=== PATIENT | female | born 1960 | race American Indian/Alaskan Native ===

== ENCOUNTER 2019-03-27 15:09 | Inpatient (IN) | payer OTHER ==
--- NOTE | 2019-03-27 16:13 | Emergency Department Report ---
HPI - General Chief Complaint: Dyspnea/Respdistress Time Seen by Provider: 03/27/19 15:37 - HPI HPI: 58-year-old -Ira[place] female, with a past medical history of CHF, hypertension, osteoarthritis, gout, morbid obesity, presents to the emergency department by EMS from home with complaint of shortness of breath and volume/fluid overload. Patient has been having swelling in the legs and abdomen that she says has been going on for the past 2 weeks. More recently she has had a few days of shortness of breath, coughing. Earlier today the patient says that she had a "vasovagal" episode in which she passed out while coughing. She says that this has occurred multiple times over the past year and "they are working it up." The patient has been taking some extra Lasix for the swelling without much relief. She is a [facility] patient. No recent travel or sick contacts at home. ED Past Medical Hx - Past Medical History Hx Hypertension: Yes Hx Congestive Heart Failure: Yes Hx Diabetes: No Hx Headaches / Migraines: No Hx Asthma: No Hx COPD: (pt denies) Additional medical history: Gout, Enlarged heart, osteoarthritis, H. Pylori, Pulmonary edema - Surgical History Past Surgical History?: No - Social History Smoking Status: Never Smoker - Medications Home Medications: Home Medications Medication Instructions Recorded Confirmed Last Taken Type Aspirin [Aspirin BABY CHEW TAB] 81 mg PO QDAY 05/25/13 03/28/19 Unknown History Furosemide [Lasix TAB] 40 mg PO BID #60 tablet 03/08/18 03/28/19 Unknown Rx allopurinoL [Zyloprim] 300 mg PO QDAY #30 tablet 03/08/18 03/28/19 Unknown Rx ALBUTEROL NEB's [Proventil 0.083% 2.5 mg IH Q4H PRN 07/01/18 07/01/18 Unknown History NEBS] Albuterol Sulfate [Ventolin HFA] 2 puff IH Q4H PRN 07/01/18 07/01/18 Unknown History Losartan [Cozaar] 12.5 mg PO QDAY 07/01/18 03/28/19 Unknown History Pantoprazole [Protonix TAB] 40 mg PO BID 07/01/18 07/01/18 Unknown History Potassium Chloride [K-Tab ER] 20 meq PO QDAY 07/01/18 03/28/19 Unknown History ED Review of Systems ROS: Stated complaint: SOB Other details as noted in HPI Comment: All other systems reviewed and negative Constitutional: denies: chills, fever Eyes: denies: eye pain, vision change ENT: denies: ear pain, throat pain Respiratory: cough, shortness of breath Cardiovascular: edema, syncope Gastrointestinal: denies: abdominal pain, vomiting Genitourinary: denies: dysuria, discharge Musculoskeletal: denies: back pain, arthralgia Skin: denies: rash, lesions Neurological: denies: headache, weakness Physical Exam - Physical Exam Vital Signs: Vital Signs 03/27/19 03/27/19 15:31 15:35 Temperature 97.5 F L Pulse Rate 85 86 Respiratory 19 23 Rate Blood Pressure 137/65 Blood Pressure 137/65 [Left] O2 Sat by Pulse 100 97 Oximetry Physical Exam: GENERAL: The patient is well-developed well-nourished. HEENT: Normocephalic. Atraumatic. Patient has moist mucous membranes. EYES: Extraocular motions are intact. NECK: Supple. Trachea is midline. CHEST/LUNGS: Coarse breath sounds. Mild tachypnea but no accessory muscle use. There is no respiratory distress noted. HEART/CARDIOVASCULAR: Regular. There is no tachycardia. There is no murmur. ABDOMEN: Abdomen is soft, nontender. Patient has normal bowel sounds. Morbidly obese habitus. SKIN:Skin is warm and dry. Bilateral lower extremity edema. NEURO: The patient is awake, alert, and oriented. The patient is cooperative. The patient has no focal neurologic deficits. Normal speech. MUSCULOSKELETAL: There is no tenderness or deformity. There is no evidence of acute injury. ED Course Vital Signs 03/27/19 03/27/19 15:31 15:35 Temperature 97.5 F L Pulse Rate 85 86 Respiratory 19 23 Rate Blood Pressure 137/65 Blood Pressure 137/65 [Left] O2 Sat by Pulse 100 97 Oximetry - Reevaluation(s) Reevaluation #1: 03/27/19 23:58 I have spoken to Dr. Crawley at [facility] regarding the patient's need for admission and her request for transfer to every or a [facility] facility. At first, they were going to send [place] [facility] [place] to [place] department for evaluation and then most likely admission. However, just at this time, the patient began having some hypoxia despite being on her 8 L via nasal cannula of oxygen. Patient was not stable for transfer at this point but Dr. Crawley has given us permission to admit the patient to this hospital and they will reevaluate the patient tomorrow for possible transfer. The patient was given DuoNeb treatments and placed on high flow oxygen with good improvement of her shortness of breath and improvement of the oxygen saturation. ED Medical Decision Making - Lab Data Result diagrams: 03/28/19 03:18 03/28/19 03:18 - Radiology Data Radiology results: report reviewed, image reviewed interpreted by me: Chest x-ray shows some pulmonary vascular congestion and mild Interstitial edema. No pneumothorax. No obvious pneumonia. CT ANGIOGRAPHY OF THE CHEST WITH INTRAVENOUS CONTRAST AND MULTIPLANAR MIP RECONSTRUCTIONS INDICATION / CLINICAL INFORMATION: Shortness of breath, syncope and elevated d-dimer. TECHNIQUE: Axial CT images were obtained after injection of 100 cc Omnipaque 350 IV contrast using CTA protocol. 3 plane MIP / 3D reconstructions were produced. All CT scans at this location are perfo rmed using CT dose reduction for ALARA by means of automated exposure control. COMPARISON: None currently available. FINDINGS: There is moderate generalized cardiomegaly. There is also generalized enlargement of the pulmonary arteries bilaterally. There is good opacification of the pulmonary arterial system bilaterally without intraluminal filling defect to suggest acute PTE. There are mild atherosclerotic calcifications involving the thoracic aorta without aneurysm or dissection. No coronary artery calcification is seen. The tracheobronchial tree is normal. There is mild bibasilar dependent atelectasis. The lungs are otherwise clear. There is no evidence of adenopathy or effusion. There is reflux of contrast into a dilated inferior vena cava and into the hepatic veins. The visualized upper abdomen is otherwise normal. There is mild lower thoracic spondylosis. IMPRESSION: 1. No evidence of acute PTE. 2. Moderate generalized cardiomegaly. Reflux of contrast into the IVC and hepatic veins is characteristic of right heart failure. 3. Enlargement of the central pulmonary arteries is consistent with pulmonary arterial hypertension. - Medical Decision Making This patient came in with the complaints of swelling to the lower extremity and up to the abdomen, as well as some shortness of breath. She has a history of CHF, morbid obesity with sleep apnea, COPD. The patient does appear to have th is edema but does not appear in any respiratory distress. However at times the patient's pulse ox is seen going down into the mid to low 80s. Her labs were mostly unremarkable except for an elevated BNP and elevated d-dimer level. Chest x-ray is consistent with CHF. The patient has only been taking 1.5 times the normal prescribed diuretic dose for her. At one point, when the patient did appear more stable, and based on the patient's request, I attempted to get her transferred to a [facility] facility. However she had another episode of the hypoxia and was unstable for transfer. She did better with the high flow oxygen. Eventually she did have the CT angiography of the chest that did not show any PE and once again appears consistent with a CHF exacerbation. She was given an extra dose of Lasix and will be admitted to the IMCU. Patient accepted by the hospitalist, Dr. Rendon. - Differential Diagnosis CHF, PE, Pneumonia, COPD Critical Care Time: No Critical care attestation.: If time is entered above; I have spent that time in minutes in the direct care of this critically ill patient, excluding procedure time. ED Disposition Clinical Impression: Obesity hypoventilation syndrome, COPD exacerbation, Hypoxia CHF exacerbation Qualifiers: Heart failure type: unspecified Qualified Code(s): I50.9 - Heart failure, unspecified Disposition: DC-09 OP ADMIT IP TO THIS HOSP Is pt being admited?: Yes Condition: Serious Time of Disposition: 22:05
--- NOTE | 2019-03-27 16:13 | XRay Report ---
CHEST 1 VIEW INDICATION / CLINICAL INFORMATION: SOB. COMPARISON: Or 17 2018 FINDINGS: SUPPORT DEVICES: None. HEART / MEDIASTINUM: Cardiac silhouette is moderately enlarged but unchanged from prior exam. There i s pulmonary venous hypertension. LUNGS / PLEURA: No significant pulmonary or pleural abnormality. No pneumothorax. ADDITIONAL FINDINGS: No significant additional findings. IMPRESSION: 1. Persistent cardiomegaly with mild pulmonary venous hypertension. No interval change from prior exa m. Signer Name: Meg Nolen MD Signed: 03/27/2019 4:09 PM Workstation Name: [id number]
[2019-03-27 16:23] LABS: Hematocrit 40.4 % (30.3-42.9); Hemoglobin 12.8 gm/dl (10.1-14.3); Mean Corpuscular HGB Conc 32 % (30-34); Mean Corpuscular Volume 81 fl (79-97); Platelet Count 212 K/mm3 (140-440); Red Blood Count 5.01 M/mm3 (3.65-5.03); Red Cell Distribution Width 19.6 % (13.2-15.2)
[2019-03-27 16:49] LABS: Alanine Aminotransferase 33 units/L (7-56); Albumin 3.6 g/dL (3.9-5); BUN/Creatinine Ratio 19; Blood Urea Nitrogen 15 mg/dL (7-17); Calcium 9.8 mg/dL (8.4-10.2); Hemolysis Index 11
[2019-03-27 19:14] LABS: Basophils % (Manual) 0 % (0.0-1.8); Target Cells 1+; Total Cells Counted 100
[2019-03-27 19:15] LABS: Hypochromasia 1+; Large Platelets 1+; Ovalocytes Few; Platelet Estimate Consistent w Auto
[2019-03-27] MEDS ORDERED: FUROSEMIDE 40 MG/4 ML INJ IV ONE (19:46)
[2019-03-27] MEDS ORDERED: IPRATROPIUM 0.02% NEBU 2.5 ML IH ONE (21:17)
[2019-03-27] MEDS ORDERED: ALBUTEROL 2.5 MG/3 ML NEBU IH ONE (21:17)
[2019-03-27] MEDS ORDERED: ENOXAPARIN 100 MG/1 ML INJ SUB-Q ONE (22:04)
[2019-03-27] MEDS ORDERED: ACETAMINOPHEN 325 MG TAB PO PRN (23:25)
[2019-03-27] MEDS ORDERED: MORPHINE 2 MG/1 ML INJ IV PRN (23:25)
[2019-03-27] MEDS ORDERED: ONDANSETRON 4 MG/2 ML INJ IV PRN (23:25)
[2019-03-27] MEDS ORDERED: MAGNESIUM HYDROXIDE (MOM) ORAL LIQD UDC PO PRN (23:25)
[2019-03-27] MEDS ORDERED: NITROGLYCERIN 0.4 MG TAB SUBL SL PRN (23:25)
--- NOTE | 2019-03-28 00:32 | Cat Scan Report ---
CT ANGIOGRAPHY OF THE CHEST WITH INTRAVENOUS CONTRAST AND MULTIPLANAR MIP RECONSTRUCTIONS INDICATION / CLINICAL INFORMATION: Shortness of breath, syncope and elevated d-dimer. TECHNIQUE: Axial CT images were obtained after injection of 100 cc Omnipaque 350 IV contrast using CTA protocol. 3 plane MIP / 3D reconstructions were produced. All CT scans at this location are performed using CT dose reduction for ALARA by means of automated exposure control. COMPARISON: None currently available. FINDINGS: There is moderate generalized cardiomegaly. There is also generalized enlargement of the pulmonary ar teries bilaterally. There is good opacification of the pulmonary arterial system bilaterally without intraluminal filling defect to suggest acute PTE. There are mild atherosclerotic calcifications invol ving the thoracic aorta without aneurysm or dissection. No coronary artery calcification is seen. The tracheobronchial tree is normal. There is mild bibasilar dependent atelectasis. The lungs are oth erwise clear. There is no evidence of adenopathy or effusion. There is reflux of contrast into a dilated inferior vena cava and into the hepatic veins. The visuali zed upper abdomen is otherwise normal. There is mild lower thoracic spondylosis. IMPRESSION: 1. No evidence of acute PTE. 2. Moderate generalized cardiomegaly. Reflux of contrast into the IVC and hepatic veins is characteri stic of right heart failure. 3. Enlargement of the central pulmonary arteries is consistent with pulmonary arterial hypertension. Signer Name: Aníbal Cheney MD Signed: 03/28/2019 12:27 AM Workstation Name: [id number]
[2019-03-28] MEDS ORDERED: IPRATROPIUM/ALBUTEROL SULFATE 3 ML AMPUL.NEB IH ONE ×2 (02:06→21:34)
[2019-03-28] MEDS: IPRATROPIUM/ALBUTEROL SULFATE 3 ML AMPUL.NEB IH SCH ×3 (02:22→21:33)
[2019-03-28 04:09] LABS: Basophils # (Auto) 0.1 K/mm3 (0.0-0.1); Basophils % (Auto) 1.2 % (0.0-1.8); Eosinophils # (Auto) 0.1 K/mm3 (0.0-0.4); Eosinophils % (Auto) 1.2 % (0.0-4.3); Hematocrit 42.1 % (30.3-42.9); Hemoglobin 13.4 gm/dl (10.1-14.3); Lymphocytes # (Auto) 2.5 K/mm3 (1.2-5.4); Lymphocytes % (Auto) 39.1 % (13.4-35.0); Mean Corpuscular HGB Conc 32 % (30-34); Mean Corpuscular Volume 82 fl (79-97); Monocytes # (Auto) 0.6 K/mm3 (0.0-0.8); Monocytes % (Auto) 10.1 % (0.0-7.3); Platelet Count 215 K/mm3 (140-440); Red Blood Count 5.16 M/mm3 (3.65-5.03); Red Cell Distribution Width 19.3 % (13.2-15.2)
[2019-03-28 04:15] LABS: BUN/Creatinine Ratio 19; Blood Urea Nitrogen 15 mg/dL (7-17); Calcium 10.1 mg/dL (8.4-10.2); Hemolysis Index 8
[2019-03-28 04:21] LABS: INR 1.19 (0.87-1.13)
[2019-03-28 04:22] LABS: Partial Thromboplastin Time 39.8 Sec. (24.2-36.6)
[2019-03-28] MEDS ORDERED: FUROSEMIDE 20 MG/2 ML INJ ONE ×2 (06:13→18:07)
[2019-03-28] MEDS ORDERED: methylPREDNISolone Sod Succinate 40 MG/1 ML INJ ONE ×3 (06:13→22:17)
[2019-03-28] MEDS: FUROSEMIDE 40 MG/4 ML INJ IV SCH ×2 (06:20→18:08)
[2019-03-28] MEDS: methylPREDNISolone Sod Succinate 40 MG/1 ML INJ IV SCH ×3 (06:20→22:37)
--- NOTE | 2019-03-28 06:35 | History and Physical Report ---
History of Present Illness Date of examination: 03/27/19 Date of admission: 03/27/19 22:05 Chief complaint: Shortness of breath Progressive lower extremity swelling History of present illness: Patient is a 58-year-old -Maltese female with known history of CHF, COPD, morbid obesity, hypertension and gout who presents to the emergency room today complaining of shortness of breath and progressive swelling of her lower extremity which has been ongoing for about 2 weeks. Patient is a [facility] patient and has been cleared to receive care in this facility. Patient indicates that she has been taking extra doses of diuretics without any significant improvement in extremity swelling. She also indicates that she has had episodes of vasovagal attacks which is currently being evaluated. She had an episode earlier today. She denies any chest pain, no nausea vomiting, no abdominal pain, however she has had some pain in her left lower extremity. Attempts were made in getting an ultrasound of the lower extremities today but due to technical reasons just coul d not be done. CT angiogram did not show any pulmonary embolism. Past History Past Medical History: arthritis, COPD, heart failure, hypertension, other (Morbid obesity) Social history: no significant social history Family history: no significant family history Medications and Allergies Allergies Allergy/AdvReac Type Severity Reaction Status Date / Time ibuprofen AdvReac Nausea Verified 05/25/13 17:03 lisinopril AdvReac Unknown Verified 03/02/18 05:51 Home Medications Medication Instructions Recorded Confirmed Last Taken Type Aspirin [Aspirin BABY CHEW TAB] 81 mg PO QDAY 05/25/13 07/01/18 Unknown History Furosemide [Lasix TAB] 40 mg PO BID #60 tablet 03/08/18 07/01/18 Unknown Rx allopurinoL [Zyloprim] 300 mg PO QDAY #30 tablet 03/08/18 07/01/18 Unknown Rx ALBUTEROL NEB's [Proventil 0.083% 2.5 mg IH Q4H PRN 07/01/18 07/01/18 Unknown History NEBS] Albuterol Sulfate [Ventolin HFA] 2 puff IH Q4H PRN 07/01/18 07/01/18 Unknown History Ciclesonide [Alvesco 160MCG/PUFF] 1 puff IH QDAY 07/01/18 07/01/18 Unknown History Losartan [Cozaar] 12.5 mg PO QDAY 07/01/18 07/01/18 Unknown History Pantoprazole [Protonix TAB] 40 mg PO BID 07/01/18 07/01/18 Unknown History Potassium Chloride [K-Tab ER] 20 meq PO QDAY 07/01/18 07/01/18 Unknown History carvediloL [Coreg] 3.125 mg PO BID 30 Days #60 tablet 07/06/18 Unknown Rx Active Meds: Active Medications Acetaminophen (Tylenol) 650 mg PO Q4H PRN PRN Reason: Pain MILD(1-3)/Fever >100.5/SHETTY Albuterol/Ipratropium (Duoneb *Not For Prn Use*) 1 ampul IH Q6HRT [facility] Last Admin: 03/28/19 02:22 Dose: 1 ampul Documented by: Furosemide (Lasix) 40 mg IV BID@0600,1800 [facility] Last Admin: 03/28/19 06:20 Dose: 40 mg Documented by: Magnesium Hydroxide (Milk Of Magnesia) 30 ml PO Q4H PRN PRN Reason: Constipation Methylprednisolone Sodium Succinate (Solu-Medrol) 40 mg IV Q8HR [facility] Last Admin: 03/28/19 06:20 Dose: 40 mg Documented by: Morphine Sulfate (Morphine) 2 mg IV Q4H PRN PRN Reason: Pain, Moderate (4-6) Nitroglycerin (Nitrostat) 0.4 mg SL .Q5MIN PRN PRN Reason: Chest Pain Ondansetron HCl (Zofran) 4 mg IV Q8H PRN PRN Reason: Nausea And Vomiting Sodium Chloride (Sodium Chloride Flush Syringe 10 Ml) 10 ml IV BID [facility] Sodium Chloride (Sodium Chloride Flush Syringe 10 Ml) 10 ml IV PRN PRN PRN Reason: LINE FLUSH Review of Systems Constitutional: no fever, no chills Cardiovascular: no chest pain, no palpitations Respiratory: shortness of breath, no cough Gastrointestinal: no nausea, no vomiting, no diarrhea Integumentary: no rash, no pruritis Neurological: no headaches Psychiatric: no anxiety, no confusion Endocrine: no excessive thirst, no nocturia Exam - Constitutional Vitals: Temp Pulse Resp BP Pulse Ox 97.5 F L 86 22 101/71 94 03/27/19 15:35 03/28/19 06:00 03/28/19 06:00 03/28/19 06:00 03/28/19 06:00 General appearance: Present: no acute distress, well-nourished, obese - EENT Eyes: Present: PERRL, EOM intact ENT: hearing intact, clear oral mucosa, dentition normal - Neck Neck: Present: supple, normal ROM - Respiratory Respiratory effort: normal Respiratory: bilateral: diminished - Cardiovascular Rhythm: regular Heart Sounds: Present: S1 & S2 - Extremities Extremities: no ischemia Results - Labs CBC & Chem 7: 03/28/19 03:18 03/28/19 03:18 Labs: Abnormal lab results 03/27/19 03/27/19 03/27/19 Range/Units 15:54 15:54 15:54 RBC (3.65-5.03) M/mm3 MCH 26 L (28-32) pg RDW 19.6 H (13.2-15.2) % Lymph % (Auto) (13.4-35.0) % Glynn % (Auto) (0.0-7.3) % Monocytes % (Manual) 10.0 H (0.0-7.3) % PT (12.2-14.9) Sec. INR (0.87-1.13) APTT (24.2-36.6) Sec. D-Dimer 1130.51 H (0-234) ng/mlDDU Glucose (65-100) mg/dL Total Bilirubin 1.50 H (0.1-1.2) mg/dL NT-Pro-B Natriuret Pep (0-900) pg/mL Albumin 3.6 L (3.9-5) g/dL 03/27/19 03/28/19 03/28/19 Range/Units 17:15 03:18 03:18 RBC 5.16 H (3.65-5.03) M/mm3 MCH 26 L (28-32) pg RDW 19.3 H (13.2-15.2) % Lymph % (Auto) 39.1 H (13.4-35.0) % Glynn % (Auto) 10.1 H (0.0-7.3) % Monocytes % (Manual) (0.0-7.3) % PT 15.3 H (12.2-14.9) Sec. INR 1.19 H (0.87-1.13) APTT 39.8 H (24.2-36.6) Sec. D-Dimer (0-234) ng/mlDDU Glucose (65-100) mg/dL Total Bilirubin (0.1-1.2) mg/dL NT-Pro-B Natriuret Pep 1903 H (0-900) pg/mL Albumin (3.9-5) g/dL 03/28/19 Range/Units 03:18 RBC (3.65-5.03) M/mm3 MCH (28-32) pg RDW (13.2-15.2) % Lymph % (Auto) (13.4-35.0) % Glynn % (Auto) (0.0-7.3) % Monocytes % (Manual) (0.0-7.3) % PT (12.2-14.9) Sec. INR (0.87-1.13) APTT (24.2-36.6) Sec. D-Dimer (0-234) ng/mlDDU Glucose 128 H (65-100) mg/dL Total Bilirubin (0.1-1.2) mg/dL NT-Pro-B Natriuret Pep (0-900) pg/mL Albumin (3.9-5) g/dL Assessment and Plan - Patient Problems (1) Acute exacerbation of congestive heart failure Current Visit: Yes Status: Acute Qualifiers: Heart failure type: unspecified Qualified Code(s): I50.9 - Heart failure, unspecified Plan to address problem: Patient placed on diuretics. Will monitor input and output and also monitor daily weight. (2) COPD exacerbation Current Visit: Yes Status: Acute Plan to address problem: Patient was placed on nebulizing treatment and IV steroid.. She is also on home oxygen 2 L. (3) Hypoxia Current Visit: Yes Status: Acute Plan to address problem: Patient kept on oxygen will keep O2 saturation greater oxygen 92%. (4) Obesity hypoventilation syndrome Current Visit: Yes Status: Chronic Plan to address problem: Patient counseled on lifestyle modification. Will monitor weight. (5) DVT prophylaxis Current Visit: No Status: Acute Plan to address problem: Patient on anticoagulation.
--- NOTE | 2019-03-28 13:51 | Event Note ---
Date: 03/28/19 patient seen and examined Patient is a 58-year-old -[place] female with known history of CHF, COPD, morbid obesity, hypertension and gout who presents to the emergency room today complaining of shortness of breath and progressive swelling of her lower extremity which has been ongoing for about 2 weeks cont current mx and plan
[2019-03-28] MEDS ORDERED: methylPREDNISolone Sod Succinate 125 MG/2 ML INJ ONE (14:57)
[2019-03-28] MEDS ORDERED: HYDROcodone/ACETAMINOPHEN 5-325 MG TAB PO PRN (17:55)
[2019-03-28] MEDS ORDERED: POTASSIUM CHLORIDE ER 20 MEQ TAB PO ONE (18:07)
[2019-03-28] MEDS: POTASSIUM CHLORIDE ER 20 MEQ TAB PO SCH (18:08)
[2019-03-28] MEDS ORDERED: FUROSEMIDE 40 MG/4 ML INJ ONE (18:08)
[2019-03-28] MEDS: allopurinoL 300 MG TAB PO SCH (18:31)
[2019-03-29] MEDS ORDERED: IPRATROPIUM/ALBUTEROL SULFATE 3 ML AMPUL.NEB IH ONE ×2 (02:53→07:54)
[2019-03-29] MEDS: IPRATROPIUM/ALBUTEROL SULFATE 3 ML AMPUL.NEB IH SCH ×4 (02:56→21:04)
[2019-03-29] MEDS ORDERED: FUROSEMIDE 40 MG/4 ML INJ ONE (06:48)
[2019-03-29] MEDS ORDERED: methylPREDNISolone Sod Succinate 40 MG/1 ML INJ ONE (06:49)
[2019-03-29] MEDS: methylPREDNISolone Sod Succinate 40 MG/1 ML INJ IV SCH ×3 (07:08→21:21)
[2019-03-29] MEDS: FUROSEMIDE 40 MG/4 ML INJ IV SCH ×2 (07:08→18:49)
[2019-03-29] MEDS: POTASSIUM CHLORIDE ER 20 MEQ TAB PO SCH (09:32)
[2019-03-29] MEDS: allopurinoL 300 MG TAB PO SCH (09:33)
[2019-03-29] MEDS ORDERED: allopurinoL 300 MG TAB PO SCH (10:00)
[2019-03-29] MEDS ORDERED: LOSARTAN 25 MG TAB PO SCH (10:00)
--- NOTE | 2019-03-29 13:09 | Consultation ---
History of Present Illness Consult date: 03/29/19 Requesting physician: RODERICK BOYER Consult reason: congestive heart failure History of present illness: The pt is a 58-year-old female with a history of HTN, HFpEF, asthma, chronic respiratory failure requiring home O2 (8L per pt report), OHS, sleep apnea, severe pulmonary HTN, gout, morbid obesity. She is followed by [place]. She presented with complains of progressively worsening shortness of breath, orthopnea, BLE swelling and abdominal swelling for 2 weeks prior to arrival. She denies any chest pain, palpitations, n/v, diaphoresis, dizziness or syncope. Echo done 02/2018 showed EF 55-60%, RA mod to severely dilated, mild TR, impaired relaxation, RV mod to severely dilated, severe pulm HTN with RVSP 90m mHg. Lexiscan MPI stress test done 02/2018 was TDS, no significant ischemia or prior infarction. Past History Past Medical History: arthritis, COPD, heart failure, hypertension, other (Morbid obesity) Social history: no significant social history Family history: no significant family history Medications and Allergies Allergies Allergy/AdvReac Type Severity Reaction Status Date / Time ibuprofen AdvReac Nausea Verified 05/25/13 17:03 lisinopril AdvReac Unknown Verified 03/02/18 05:51 Home Medications Medication Instructions Recorded Confirmed Last Taken Type Aspirin [Aspirin BABY CHEW TAB] 81 mg PO QDAY 05/25/13 03/29/19 Unknown History Furosemide [Lasix TAB] 40 mg PO BID #60 tablet 03/08/18 03/29/19 03/27/19 Rx allopurinoL [Zyloprim] 300 mg PO QDAY #30 tablet 03/08/18 03/28/19 Unknown Rx ALBUTEROL NEB's [Proventil 0.083% 2.5 mg IH Q4H PRN 07/01/18 03/29/19 03/26/19 History NEBS] Albuterol Sulfate [Ventolin HFA] 2 puff IH Q4H PRN 07/01/18 03/29/19 03/26/19 History Losartan [Cozaar] 12.5 mg PO QDAY 07/01/18 03/29/19 03/27/19 History Pantoprazole [Protonix TAB] 40 mg PO BID 07/01/18 03/29/19 02/14/18 History Potassium Chloride [K-Tab ER] 20 meq PO QDAY 07/01/18 03/29/19 03/27/19 History Active Meds: Active Medications Acetaminophen (Tylenol) 650 mg PO Q4H PRN PRN Reason: Pain MILD(1-3)/Fever >100.5/SHETTY Acetaminophen/Hydrocodone Bitart ([place] 5/325) 1 each PO Q8H PRN PRN Reason: Pain, Moderate (4-6) Albuterol/Ipratropium (Duoneb *Not For Prn Use*) 1 ampul IH Q6HRT [facility] Last Admin: 03/29/19 08:00 Dose: 1 ampul Documented by: Allopurinol (Zyloprim) 300 mg PO QDAY [facility] Last Admin: 03/29/19 09:33 Dose: 300 mg Documented by: Furosemide (Lasix) 40 mg IV BID@0600,1800 [facility] Last Admin: 03/29/19 07:08 Dose: 40 mg Documented by: Magnesium Hydroxide (Milk Of Magnesia) 30 ml PO Q4H PRN PRN Reason: Constipation Methylprednisolone Sodium Succinate (Solu-Medrol) 40 mg IV Q8HR [facility] Last Admin: 03/29/19 07:08 Dose: 40 mg Documented by: Morphine Sulfate (Morphine) 2 mg IV Q4H PRN PRN Reason: Pain, Moderate (4-6) Nitroglycerin (Nitrostat) 0.4 mg SL .Q5MIN PRN PRN Reason: Chest Pain Ondansetron HCl (Zofran) 4 mg IV Q8H PRN PRN Reason: Nausea And Vomiting Pneumococcal Polyvalent Vaccine (Pneumovax 23) 0.5 ml IM .ONCE ONE Stop: 03/30/19 12:01 Potassium Chloride (K-Dur) 20 meq PO QDAY [facility] Last Admin: 03/29/19 09:32 Dose: 20 meq Documented by: Sodium Chloride (Sodium Chloride Flush Syringe 10 Ml) 10 ml IV BID [facility] Last Admin: 03/28/19 22:37 Dose: 10 ml Documented by: Sodium Chloride (Sodium Chloride Flush Syringe 10 Ml) 10 ml IV PRN PRN PRN Reason: LINE FLUSH Review of Systems Constitutional: weight gain, no fever, no chills, no sweats Ears, nose, mouth and throat: no ear pain, no nose pain, no sinus pressure, no sinus pain Cardiovascular: edema, shortness of breath, dyspnea on exertion, leg edema, decreased exercise tolerance, no chest pain, no orthopnea, no palpitations, no rapid/irregular heart beat, no syncope, no lightheadedness Respiratory: shortness of breath, dyspnea on exertion, wheezing, no cough, no pain on inspiration Gastrointestinal: no abdominal pain, no nausea, no vomiting, no constipation, no change in bowel habits Genitourinary Female: no pelvic pain, no flank pain, no dysuria, no urinary frequency, no urgency Musculoskeletal: no neck stiffness, no neck pain, no shooting arm pain, no arm numbness/tingling, no low back pain, no shooting leg pain Integumentary: no rash, no pruritis, no redness, no sores, no wounds Neurological: no head injury, no paralysis, no weakness, no parathesias, no numbness, no tingling, no seizures, no syncope Psychiatric: no anxiety Endocrine: no cold intolerance, no heat intolerance Hematologic/Lymphatic: no easy bruising, no easy bleeding Allergic/Immunologic: no urticaria, no wheezing Physical Examination Vital Signs Pulse Resp BP Pulse Ox 85 19 137/65 100 03/27/19 15:31 03/27/19 15:31 03/27/19 15:31 03/27/19 15:31 General appearance: no acute distress HEENT: Positive: PERRL, Normocephaly, Mucus Membranes Moist Neck: Positive: neck supple, trachea midline Cardiac: Positive: Reg Rate and Rhythm, S1/S2 Lungs: Positive: Decreased Breath Sounds, Oxygen Neuro: Positive: Grossly Intact Abdomen: Negative: Tender Skin: Negative: Rash Musculoskeletal: No Pain Extremities: Absent: edema Results 03/28/19 03:18 03/28/19 03:18 - Imaging and Cardiology Echo: report reviewed (02/2018 showed EF 55-60%, RA mod to severely dilated, mild TR, impaired relaxation, RV mod to severely dilated, severe pulm HTN with RVSP 90mmHg.) EKG: report reviewed, image reviewed EKG interpretations - Telemetry EKG Rhythm: Sinus Rhythm - EKG Sinus rhythms and dysrhythmias: sinus rhythm Repolarization changes or abnormalities: nonspecific abnormality, ST segment, and/or T wave Assessment and Plan DDimer elevated - chest CTA neg for PE. Agree with present cardiac management. Await echo. Await pulmonary recs - pt reports she is regularly followed by pulmonary HTN specialist at [place], however, home meds do not appear to include any medications for pulmonary HTN. Further recs to follow per hospital course. The patient has been seen in conjunction with Dr. Nicole Shultz who agrees with the assessment and plan of care. - Patient Problems (1) Acute heart failure with preserved ejection fraction Current Visit: Yes Status: Acute (2) Cor pulmonale Current Visit: Yes Status: Acute (3) Moderate to severe pulmonary hypertension Current Visit: Yes Status: Chronic (4) Acute and chronic respiratory failure with hypoxia Current Visit: Yes Status: Acute (5) Hypertension Current Visit: Yes Status: Chronic Qualifiers: Hypertension type: essential hypertension Qualified Code(s): I10 - Essential (primary) hypertension (6) Obesity hypoventilation syndrome Current Visit: Yes Status: Chronic (7) Obstructive sleep apnea Current Visit: Yes Status: Chronic (8) Morbid obesity Current Visit: Yes Status: Chronic (9) Former smoker Current Visit: Yes Status: Chronic
--- NOTE | 2019-03-29 15:47 | Progress Note ---
Assessment and Plan /Acute heart failure with preserved ejection fraction - cont lasix iv, cardiology following - monitor ins/os, daily wt, supplemental O2 /Acute on chronic respiratory failure with Cor pulmonale - on 100% Fio2, pulmonary following - cont nebs, serial abg / Moderate to severe pulmonary hypertension - pulmonary consulted / Hypertension - cont current meds, stable / Obesity hypoventilation syndrome - uses BiPAP at bedtime / Morbid obesity wy reduction diet when medically stable, may need referral for bariatric surgery outpt / Former smoker /Dvt Px, lovenox The high probability of a clinically significant, sudden or life threatening deterioration of the [respiratory, CVS] system(s) required my full and direct attention, intervention and personal management. The aggregate critical care time was [32] minutes. This time is in addition to time spent performing reported procedures but includes the following: [x] Data Review and interpretation [x] Patient assessment and monitoring of vital signs [x] Documentation [x] Medication orders and management Brief history: Patient is a 58-year-old -[place] female with known history of CHF, COPD, morbid obesity, hypertension and gout who presents to the emergency room today complaining of shortness of breath and progressive swelling of her lower extremity which has been ongoing for about 2 weeks. She is placed on 100% high flow O2, admitted to ICU Subjective Date of service: 03/29/19 Interval history: Patient seen and examined. Medical records and medication list reviewed. No acute event overnight noted by the RN. Patient c/o difficulty breathing, on 100% FiO2. Patient is tolerating diet. Discussed plan of care at bedside with patient. Objective - Exam Narrative Exam: General appearance: no acute distress, morbidly obese HEENT: Positive: PERRL, Normocephaly, Mucus Membranes Moist Neck: Positive: neck supple, trachea midline Cardiac: Positive: Reg Rate and Rhythm, S1/S2 Lungs: Positive: Decreased Breath Sounds, on 100% Fio2 with vapotherm Neuro: Positive: Grossly Intact Abdomen: Negative: Tender Skin: Negative: Rash Musculoskeletal: No Pain Extremities: Absent: edema - Constitutional Vitals: Vital Signs - 12hr 03/29/19 03/29/19 03/29/19 03:51 04:01 04:11 Temperature Pulse Rate Pulse Rate [ Bilateral Bases ] Pulse Rate [ From Monitor] Respiratory Rate Respiratory Rate [Bilateral Bases] Blood Pressure 128/78 128/78 128/78 Blood Pressure [Left] O2 Sat by Pulse 88 89 90 Oximetry 03/29/19 03/29/19 03/29/19 04:21 04:31 04:41 Temperature Pulse Rate 99 H 97 H 93 H Pulse Rate [ Bilateral Bases ] Pulse Rate [ From Monitor] Respiratory 15 24 23 Rate Respiratory Rate [Bilateral Bases] Blood Pressure 128/78 93/51 93/51 Blood Pressure [Left] O2 Sat by Pulse 88 89 89 Oximetry 03/29/19 03/29/19 03/29/19 04:51 05:01 05:11 Temperature Pulse Rate 93 H 92 H 93 H Pulse Rate [ Bilateral Bases ] Pulse Rate [ From Monitor] Respiratory 21 21 21 Rate Respiratory Rate [Bilateral Bases] Blood Pressure 93/51 110/57 110/57 Blood Pressure [Left] O2 Sat by Pulse 88 88 89 Oximetry 03/29/19 03/29/19 03/29/19 05:21 05:31 05:41 Temperature Pulse Rate 93 H 93 H 94 H Pulse Rate [ Bilateral Bases ] Pulse Rate [ From Monitor] Respiratory 23 23 21 Rate Respiratory Rate [Bilateral Bases] Blood Pressure 110/57 107/63 107/63 Blood Pressure [Left] O2 Sat by Pulse 88 89 88 Oximetry 03/29/19 03/29/19 03/29/19 05:51 06:01 06:11 Temperature Pulse Rate 96 H 97 H 94 H Pulse Rate [ Bilateral Bases ] Pulse Rate [ From Monitor] Respiratory 24 18 21 Rate Respiratory Rate [Bilateral Bases] Blood Pressure 116/67 116/67 116/67 Blood Pressure [Left] O2 Sat by Pulse 88 84 88 Oximetry 03/29/19 03/29/19 03/29/19 07:09 07:30 08:24 Temperature 97.7 F Pulse Rate 94 H Pulse Rate [ 96 H Bilateral Bases ] Pulse Rate [ From Monitor] Respiratory 22 Rate Respiratory 23 Rate [Bilateral Bases] Blood Pressure Blood Pressure 112/55 [Left] O2 Sat by Pulse 90 Oximetry 03/29/19 03/29/19 03/29/19 08:25 08:48 08:50 Temperature Pulse Rate Pulse Rate [ Bilateral Bases ] Pulse Rate [ From Monitor] Respiratory Rate Respiratory Rate [Bilateral Bases] Blood Pressure 98/53 Blood Pressure [Left] O2 Sat by Pulse 93 92 93 Oximetry 03/29/19 03/29/19 03/29/19 09:00 09:10 09:20 Temperature Pulse Rate 93 H 92 H 90 Pulse Rate [ Bilateral Bases ] Pulse Rate [ From Monitor] Respiratory 17 24 14 Rate Respiratory Rate [Bilateral Bases] Blood Pressure 98/53 97/53 97/53 Blood Pressure [Left] O2 Sat by Pulse 92 94 92 Oximetry 03/29/19 03/29/19 03/29/19 09:30 09:40 09:50 Temperature Pulse Rate 95 H 89 96 H Pulse Rate [ Bilateral Bases ] Pulse Rate [ From Monitor] Respiratory 17 24 17 Rate Respiratory Rate [Bilateral Bases] Blood Pressure 97/53 97/53 97/53 Blood Pressure [Left] O2 Sat by Pulse 88 91 90 Oximetry 03/29/19 03/29/19 03/29/19 10:00 10:06 10:11 Temperature Pulse Rate 97 H 100 H 93 H Pulse Rate [ Bilateral Bases ] Pulse Rate [ 95 H From Monitor] Respiratory 16 17 Rate Respiratory Rate [Bilateral Bases] Blood Pressure 97/53 97/53 Blood Pressure [Left] O2 Sat by Pulse 87 92 Oximetry 03/29/19 03/29/19 03/29/19 10:21 10:31 10:41 Temperature Pulse Rate 96 H 94 H 95 H Pulse Rate [ Bilateral Bases ] Pulse Rate [ From Monitor] Respiratory 19 21 17 Rate Respiratory Rate [Bilateral Bases] Blood Pressure 103/59 103/59 103/59 Blood Pressure [Left] O2 Sat by Pulse 89 89 91 Oximetry 03/29/19 03/29/19 03/29/19 10:51 11:01 11:11 Temperature Pulse Rate 95 H 97 H 95 H Pulse Rate [ Bilateral Bases ] Pulse Rate [ From Monitor] Respiratory 23 25 H 23 Rate Respiratory Rate [Bilateral Bases] Blood Pressure 103/59 123/62 123/62 Blood Pressure [Left] O2 Sat by Pulse 93 94 94 Oximetry 03/29/19 03/29/19 03/29/19 11:21 11:31 11:41 Temperature Pulse Rate 93 H 92 H 94 H Pulse Rate [ Bilateral Bases ] Pulse Rate [ From Monitor] Respiratory 27 H 20 15 Rate Respiratory Rate [Bilateral Bases] Blood Pressure 123/62 123/62 123/62 Blood Pressure [Left] O2 Sat by Pulse 93 92 90 Oximetry 03/29/19 03/29/19 03/29/19 11:51 12:00 12:11 Temperature Pulse Rate 92 H 91 H 89 Pulse Rate [ Bilateral Bases ] Pulse Rate [ 91 H From Monitor] Respiratory 21 27 H 21 Rate Respiratory Rate [Bilateral Bases] Blood Pressure 123/62 111/62 111/62 Blood Pressure [Left] O2 Sat by Pulse 93 94 92 Oximetry 03/29/19 03/29/19 03/29/19 12:21 12:31 12:41 Temperature Pulse Rate 89 93 H 94 H Pulse Rate [ Bilateral Bases ] Pulse Rate [ From Monitor] Respiratory 18 21 26 H Rate Respiratory Rate [Bilateral Bases] Blood Pressure 111/62 111/62 111/62 Blood Pressure [Left] O2 Sat by Pulse 94 96 84 Oximetry 03/29/19 03/29/19 03/29/19 12:51 13:00 13:11 Temperature Pulse Rate 79 90 93 H Pulse Rate [ Bilateral Bases ] Pulse Rate [ From Monitor] Respiratory 14 12 21 Rate Respiratory Rate [Bilateral Bases] Blood Pressure 111/62 115/67 115/67 Blood Pressure [Left] O2 Sat by Pulse 95 95 95 Oximetry 03/29/19 03/29/19 13:21 13:31 Temperature Pulse Rate 94 H 92 H Pulse Rate [ Bilateral Bases ] Pulse Rate [ From Monitor] Respiratory 19 20 Rate Respiratory Rate [Bilateral Bases] Blood Pressure 115/67 115/67 Blood Pressure [Left] O2 Sat by Pulse 94 95 Oximetry - Labs CBC & Chem 7: 03/28/19 03:18 03/28/19 03:18
[2019-03-30] MEDS: IPRATROPIUM/ALBUTEROL SULFATE 3 ML AMPUL.NEB IH SCH ×4 (02:34→21:29)
[2019-03-30] MEDS: methylPREDNISolone Sod Succinate 40 MG/1 ML INJ IV SCH ×3 (06:37→22:10)
[2019-03-30] MEDS: FUROSEMIDE 40 MG/4 ML INJ IV SCH ×2 (06:37→17:45)
[2019-03-30 09:55] LABS: Hematocrit 44.8 % (30.3-42.9); Mean Corpuscular HGB Conc 31 % (30-34); Mean Corpuscular Volume 82 fl (79-97); Platelet Count 271 K/mm3 (140-440); Red Cell Distribution Width 19.7 % (13.2-15.2)
[2019-03-30 10:19] LABS: BUN/Creatinine Ratio 29; Blood Urea Nitrogen 23 mg/dL (7-17); Calcium 10.5 mg/dL (8.4-10.2); Hemolysis Index 18
[2019-03-30] MEDS: POTASSIUM CHLORIDE ER 20 MEQ TAB PO SCH (10:25)
[2019-03-30] MEDS: allopurinoL 300 MG TAB PO SCH (10:25)
--- NOTE | 2019-03-30 11:46 | Progress Note ---
Assessment and Plan Assessment and plan: --Acute heart failure with preserved ejection fraction cont lasix iv, cardiology following monitor ins/os, daily wt, supplemental O2 --Acute on chronic respiratory failure with Cor pulmonale on 100% Fio2, pulmonary following cont nebs, serial abg --Moderate to severe pulmonary hypertension - pulmonary consulted --Hypertension cont current meds, stable --Obesity hypoventilation syndrome uses BiPAP at bedtime --Morbid obesity weight reduction diet when medically stable, may need referral for bariatric surgery outpt --Dvt Px, lovenox The high probability of a clinically significant, sudden or life threatening deterioration of the [respiratory, CVS] system(s) required my full and direct attention, intervention and personal management. The aggregate critical care time was [31] minutes. This time is in addition to time spent performing reported procedures but includes the following: [x] Data Review and interpretation [x] Patient assessment and monitoring of vital signs [x] Documentation [x] Medication orders and management History Interval history: Patient seen and examined medical records reviewed Patient is on high flow oxygen, In mild distress Complaints of shortness of breath and discomfort Vital signs reviewed Hospitalist Physical - Constitutional Vitals: Temp Pulse Resp BP Pulse Ox 97.6 F 104 H 29 H 230/116 90 03/30/19 08:00 03/30/19 09:14 03/30/19 09:14 03/30/19 08:01 03/30/19 09:19 General appearance: Present: no acute distress, well-nourished, obese (morbidly obese) - EENT Eyes: Present: PERRL, EOM intact - Neck Neck: Present: supple, normal ROM - Respiratory Respiratory effort: normal Respiratory: bilateral: diminished, rhonchi, negative: rales, wheezing - Cardiovascular Rhythm: regular Heart Sounds: Present: S1 & S2 - Extremities Extremities: no ischemia, No edema - Abdominal General gastrointestinal: soft, non-tender, non-distended, normal bowel sounds - Integumentary Integumentary: Present: clear, warm - Psychiatric Psychiatric: appropriate mood/affect, cooperative - Neurologic Neurologic: CNII-XII intact, moves all extremities Results - Labs CBC & Chem 7: 03/30/19 09:23 03/30/19 09:23 Labs: Laboratory Last Values WBC 10.1 K/mm3 (4.5-11.0) 03/30/19 09:23 RBC 5.50 M/mm3 (3.65-5.03) H 03/30/19 09:23 Hgb 14.0 gm/dl (10.1-14.3) 03/30/19 09:23 Hct 44.8 % (30.3-42.9) H 03/30/19 09:23 MCV 82 fl (79-97) 03/30/19 09:23 MCH 25 pg (28-32) L 03/30/19 09:23 MCHC 31 % (30-34) 03/30/19 09:23 RDW 19.7 % (13.2-15.2) H 03/30/19 09:23 Plt Count 271 K/mm3 (140-440) 03/30/19 09:23 Lymph % (Auto) 39.1 % (13.4-35.0) H 03/28/19 03:18 [place] % (Auto) 10.1 % (0.0-7.3) H 03/28/19 03:18 Eos % (Auto) 1.2 % (0.0-4.3) 03/28/19 03:18 Baso % (Auto) 1.2 % (0.0-1.8) 03/28/19 03:18 Lymph # 2.5 K/mm3 (1.2-5.4) 03/28/19 03:18 [place] # 0.6 K/mm3 (0.0-0.8) 03/28/19 03:18 Eos # 0.1 K/mm3 (0.0-0.4) 03/28/19 03:18 Baso # 0.1 K/mm3 (0.0-0.1) 03/28/19 03:18 Add Manual Diff Complete 03/27/19 15:54 Total Counted 100 03/27/19 15:54 Seg Neutrophils % 48.4 % (40.0-70.0) 03/28/19 03:18 Seg Neuts % (Manual) 63.0 % (40.0-70.0) 03/27/19 15:54 Band Neutrophils % 0 % 03/27/19 15:54 Lymphocytes % (Manual) 24.0 % (13.4-35.0) 03/27/19 15:54 Reactive Lymphs % (Man) 0 % 03/27/19 15:54 Monocytes % (Manual) 10.0 % (0.0-7.3) H 03/27/19 15:54 Eosinophils % (Manual) 3.0 % (0.0-4.3) 03/27/19 15:54 Basophils % (Manual) 0 % (0.0-1.8) 03/27/19 15:54 Metamyelocytes % 0 % 03/27/19 15:54 Myelocytes % 0 % 03/27/19 15:54 Promyelocytes % 0 % 03/27/19 15:54 Blast Cells % 0 % 03/27/19 15:54 Nucleated RBC % Not Reportable 03/27/19 15:54 Seg Neutrophils # 3.0 K/mm3 (1.8-7.7) 03/28/19 03:18 Seg Neutrophils # Man 3.6 K/mm3 (1.8-7.7) 03/27/19 15:54 Band Neutrophils # 0.0 K/mm3 03/27/19 15:54 Lymphocytes # (Manual) 1.4 K/mm3 (1.2-5.4) 03/27/19 15:54 Abs React Lymphs (Man) 0.0 K/mm3 03/27/19 15:54 Monocytes # (Manual) 0.6 K/mm3 (0.0-0.8) 03/27/19 15:54 Eosinophils # (Manual) 0.2 K/mm3 (0.0-0.4) 03/27/19 15:54 Basophils # (Manual) 0.0 K/mm3 (0.0-0.1) 03/27/19 15:54 Metamyelocytes # 0.0 K/mm3 03/27/19 15:54 Myelocytes # 0.0 K/mm3 03/27/19 15:54 Promyelocytes # 0.0 K/mm3 03/27/19 15:54 Blast Cells # 0.0 K/mm3 03/27/19 15:54 WBC Morphology Not Reportable 03/27/19 15:54 Hypersegmented Neuts Not Reportable 03/27/19 15:54 Hyposegmented Neuts Not Reportable 03/27/19 15:54 Hypogranular Neuts Not Reportable 03/27/19 15:54 Smudge Cells Not Reportable 03/27/19 15:54 Toxic Granulation Not Reportable 03/27/19 15:54 Toxic Vacuolation Not Reportable 03/27/19 15:54 Dohle Bodies Not Reportable 03/27/19 15:54 Pelger-Huet Anomaly Not Reportable 03/27/19 15:54 Rodney Rods Not Reportable 03/27/19 15:54 Platelet Estimate Consistent w auto 03/27/19 15:54 Clumped Platelets Not Reportable 03/27/19 15:54 Plt Clumps, EDTA Not Reportable 03/27/19 15:54 Large Platelets 1+ 03/27/19 15:54 Giant Platelets Not Reportable 03/27/19 15:54 Platelet Satelliting Not Reportable 03/27/19 15:54 Plt Morphology Comment Not Reportable 03/27/19 15:54 RBC Morphology Not Reportable 03/27/19 15:54 Dimorphic RBCs Not Reportable 03/27/19 15:54 Polychromasia Not Reportable 03/27/19 15:54 Hypochromasia 1+ 03/27/19 15:54 Poikilocytosis Not Reportable 03/27/19 15:54 Anisocytosis Not Reportable 03/27/19 15:54 Microcytosis Not Reportable 03/27/19 15:54 Macrocytosis Not Reportable 03/27/19 15:54 Spherocytes Not Reportable 03/27/19 15:54 Pappenheimer Bodies Not Reportable 03/27/19 15:54 Sickle Cells Not Reportable 03/27/19 15:54 Target Cells 1+ 03/27/19 15:54 Tear Drop Cells Not Reportable 03/27/19 15:54 Ovalocytes Few 03/27/19 15:54 Helmet Cells Not Reportable 03/27/19 15:54 [place] Bodies Not Reportable 03/27/19 15:54 [place] Rings Not Reportable 03/27/19 15:54 Marilynn Cells Not Reportable 03/27/19 15:54 Bite Cells Not Reportable 03/27/19 15:54 Crenated Cell Not Reportable 03/27/19 15:54 Elliptocytes Not Reportable 03/27/19 15:54 Acanthocytes (Spur) Not Reportable 03/27/19 15:54 Rouleaux Not Reportable 03/27/19 15:54 Hemoglobin C Crystals Not Reportable 03/27/19 15:54 Schistocytes Not Reportable 03/27/19 15:54 Malaria parasites Not Reportable 03/27/19 15:54 Marc Bodies Not Reportable 03/27/19 15:54 Hem Pathologist Commnt No 03/27/19 15:54 PT 15.3 Sec. (12.2-14.9) H 03/28/19 03:18 INR 1.19 (0.87-1.13) H 03/28/19 03:18 APTT 39.8 Sec. (24.2-36.6) H 03/28/19 03:18 D-Dimer 1130.51 ng/mlDDU (0-234) H 03/27/19 15:54 Sodium 140 mmol/L (137-145) 03/30/19 09:23 Potassium 4.4 mmol/L (3.6-5.0) 03/30/19 09:23 Chloride 98.5 mmol/L (98-107) 03/30/19 09:23 Carbon Dioxide 27 mmol/L (22-30) 03/30/19 09:23 Anion Gap 19 mmol/L 03/30/19 09:23 BUN 23 mg/dL (7-17) H 03/30/19 09:23 Creatinine 0.8 mg/dL (0.7-1.2) 03/30/19 09:23 Estimated GFR > 60 ml/min 03/30/19 09:23 BUN/Creatinine Ratio 29 % 03/30/19 09:23 Glucose 154 mg/dL (65-100) H 03/30/19 09:23 Calcium 10.5 mg/dL (8.4-10.2) H 03/30/19 09:23 Total Bilirubin 1.50 mg/dL (0.1-1.2) H 03/27/19 15:54 AST 40 units/L (5-40) 03/27/19 15:54 ALT 33 units/L (7-56) 03/27/19 15:54 Alkaline Phosphatase 69 units/L (35-129) 03/27/19 15:54 Troponin T < 0.010 ng/mL (0.00-0.029) 03/27/19 15:54 NT-Pro-B Natriuret Pep 1903 pg/mL (0-900) H 03/27/19 17:15 Total Protein 7.7 g/dL (6.3-8.2) 03/27/19 15:54 Albumin 3.6 g/dL (3.9-5) L 03/27/19 15:54 Albumin/Globulin Ratio 0.9 % 03/27/19 15:54 Active Medications - Current Medications Current Medications: Generic Name Dose Route Start Last Admin Trade Name Freq PRN Reason Stop Dose Admin Acetaminophen 650 mg 03/27/19 23:25 Tylenol PO Q4H PRN Pain MILD(1-3)/Fever >100.5/SHETTY Acetaminophen/Hydrocodone Bitart 1 each 03/28/19 17:55 [place] 5/325 PO Q8H PRN Pain, Moderate (4-6) Albuterol/Ipratropium 1 ampul 03/28/19 02:00 03/30/19 09:12 Duoneb *Not For Prn Use* IH 1 ampul Q6HRT [facility] Administration Allopurinol 300 mg 03/28/19 16:00 03/30/19 10:25 Zyloprim PO 300 mg QDAY [facility] Administration Furosemide 40 mg 03/28/19 06:00 03/30/19 06:37 Lasix IV 40 mg BID@0600,1800 [facility] Administration Magnesium Hydroxide 30 ml 03/27/19 23:25 Milk Of Magnesia PO Q4H PRN Constipation Methylprednisolone Sodium Succinate 40 mg 03/28/19 06:00 03/30/19 06:37 Solu-Medrol IV 40 mg Q8HR [facility]HLIA Administration Morphine Sulfate 2 mg 03/27/19 23:25 Morphine IV Q4H PRN Pain, Moderate (4-6) Nitroglycerin 0.4 mg 03/27/19 23:25 Nitrostat SL .Q5MIN PRN Chest Pain Ondansetron HCl 4 mg 03/27/19 23:25 Zofran IV Q8H PRN Nausea And Vomiting Pneumococcal Polyvalent Vaccine 0.5 ml 03/30/19 12:00 03/30/19 11:21 Pneumovax 23 IM 03/30/19 12:01 Not Given .ONCE ONE Potassium Chloride 20 meq 03/28/19 16:00 03/30/19 10:25 K-Dur PO 20 meq QDAY DAHLIA Administration Sodium Chloride 10 ml 03/28/19 10:00 03/29/19 21:21 Sodium Chloride Flush Syringe 10 Ml IV 10 ml BID DAHLIA Administration Sodium Chloride 10 ml 03/27/19 23:25 Sodium Chloride Flush Syringe 10 Ml IV PRN PRN LINE FLUSH
[2019-03-30] MEDS ORDERED: PNEUMOCOCCAL 23 Valent 0.5 ML VIAL IM ONE (12:00)
[2019-03-30] MEDS ORDERED: FLU VACC QUAD 2019-20 (3 YR UP)/PF 60 MCG/0.5 ML SYRINGE IM ONE (12:00)
--- NOTE | 2019-03-30 12:24 | Consultation ---
History of Present Illness Consult date: 03/30/19 Requesting physician: RODERICK BOYER Reason for consult: COPD, other (Acute on Chronic Hypoxemc Respiratory Failure; Severe Pulmonary HTN\) History of present illness: PULMONARY/CCM CONSULT NOTE (Full dictation # [id number]) Please see dictated notes for full details Past History Past Medical History: arthritis, COPD, heart failure, hypertension, other (Morbid obesity) Social history: no significant social history Family history: no significant family history Medications and Allergies Allergies Allergy/AdvReac Type Severity Reaction Status Date / Time ibuprofen AdvReac Nausea Verified 05/25/13 17:03 lisinopril AdvReac Unknown Verified 03/02/18 05:51 Home Medications Medication Instructions Recorded Confirmed Last Taken Type Aspirin [Aspirin BABY CHEW TAB] 81 mg PO QDAY 05/25/13 03/29/19 Unknown History Furosemide [Lasix TAB] 40 mg PO BID #60 tablet 03/08/18 03/29/19 03/27/19 Rx allopurinoL [Zyloprim] 300 mg PO QDAY #30 tablet 03/08/18 03/28/19 Unknown Rx ALBUTEROL NEB's [Proventil 0.083% 2.5 mg IH Q4H PRN 07/01/18 03/29/19 03/26/19 History NEBS] Albuterol Sulfate [Ventolin HFA] 2 puff IH Q4H PRN 07/01/18 03/29/19 03/26/19 History Losartan [Cozaar] 12.5 mg PO QDAY 07/01/18 03/29/19 03/27/19 History Pantoprazole [Protonix TAB] 40 mg PO BID 07/01/18 03/29/19 02/14/18 History Potassium Chloride [K-Tab ER] 20 meq PO QDAY 07/01/18 03/29/19 03/27/19 History Active Meds: Active Medications Acetaminophen (Tylenol) 650 mg PO Q4H PRN PRN Reason: Pain MILD(1-3)/Fever >100.5/SHETTY Acetaminophen/Hydrocodone Bitart ([place] 5/325) 1 each PO Q8H PRN PRN Reason: Pain, Moderate (4-6) Albuterol/Ipratropium (Duoneb *Not For Prn Use*) 1 ampul IH Q6HRT [facility] Last Admin: 03/30/19 09:12 Dose: 1 ampul Documented by: Allopurinol (Zyloprim) 300 mg PO QDAY [facility] Last Admin: 03/30/19 10:25 Dose: 300 mg Documented by: Furosemide (Lasix) 40 mg IV BID@0600,1800 [facility] Last Admin: 03/30/19 06:37 Dose: 40 mg Documented by: Magnesium Hydroxide (Milk Of Magnesia) 30 ml PO Q4H PRN PRN Reason: Constipation Methylprednisolone Sodium Succinate (Solu-Medrol) 40 mg IV Q8HR [facility] Last Admin: 03/30/19 06:37 Dose: 40 mg Documented by: Morphine Sulfate (Morphine) 2 mg IV Q4H PRN PRN Reason: Pain, Moderate (4-6) Nitroglycerin (Nitrostat) 0.4 mg SL .Q5MIN PRN PRN Reason: Chest Pain Ondansetron HCl (Zofran) 4 mg IV Q8H PRN PRN Reason: Nausea And Vomiting Potassium Chloride (K-Dur) 20 meq PO QDAY [facility] Last Admin: 03/30/19 10:25 Dose: 20 meq Documented by: Sodium Chloride (Sodium Chloride Flush Syringe 10 Ml) 10 ml IV BID [facility] Last Admin: 03/29/19 21:21 Dose: 10 ml Documented by: Sodium Chloride (Sodium Chloride Flush Syringe 10 Ml) 10 ml IV PRN PRN PRN Reason: LINE FLUSH Physical Examination Vital signs: Vital Signs Pulse Resp BP Pulse Ox 85 19 137/65 100 03/27/19 15:31 03/27/19 15:31 03/27/19 15:31 03/27/19 15:31 Results - Laboratory Findings CBC and BMP: 03/30/19 09:23 03/30/19 09:23 PT/INR, D-dimer PT 15.3 Sec. (12.2-14.9) H 03/28/19 03:18 INR 1.19 (0.87-1.13) H 03/28/19 03:18 D-Dimer 1130.51 ng/mlDDU (0-234) H 03/27/19 15:54 Abnormal lab findings: Abnormal Labs 03/27/19 03/27/19 03/27/19 15:54 15:54 15:54 RBC Hct MCH 26 L RDW 19.6 H Lymph % (Auto) [place] % (Auto) Monocytes % (Manual) 10.0 H PT INR APTT D-Dimer 1130.51 H BUN Glucose Calcium Total Bilirubin 1.50 H NT-Pro-B Natriuret Pep Albumin 3.6 L 03/27/19 03/28/19 03/28/19 17:15 03:18 03:18 RBC 5.16 H Hct MCH 26 L RDW 19.3 H Lymph % (Auto) 39.1 H [place] % (Auto) 10.1 H Monocytes % (Manual) PT 15.3 H INR 1.19 H APTT 39.8 H D-Dimer BUN Glucose Calcium Total Bilirubin NT-Pro-B Natriuret Pep 1903 H Albumin 03/28/19 03/30/19 03/30/19 03:18 09:23 09:23 RBC 5.50 H Hct 44.8 H MCH 25 L RDW 19.7 H Lymph % (Auto) [place] % (Auto) Monocytes % (Manual) PT INR APTT D-Dimer BUN 23 H Glucose 128 H 154 H Calcium 10.5 H Total Bilirubin NT-Pro-B Natriuret Pep Albumin
[2019-03-30] MEDS: SILDENAFIL 20 MG TAB PO SCH ×2 (15:01→20:34)
--- NOTE | 2019-03-30 15:06 | Progress Note ---
Assessment and Plan Echo reviewed - EF 55-60%, LA mildly dilated, RA severely dilated, RV mod dilated, mild MR, mod TR, severe pulmonary HTN with RVSP 101mmHg. Chest CTA neg for PE. Agree with present cardiac management. Pulmonary is following - Sildenafil initiated. The patient has been seen in conjunction with Dr. Nicole Shultz who agrees with the assessment and plan of care. - Patient Problems (1) Acute heart failure with preserved ejection fraction Current Visit: Yes Status: Acute (2) Cor pulmonale Current Visit: Yes Status: Acute (3) Moderate to severe pulmonary hypertension Current Visit: Yes Status: Chronic (4) Acute and chronic respiratory failure with hypoxia Current Visit: Yes Status: Acute (5) Hypertension Current Visit: Yes Status: Chronic Qualifiers: Hypertension type: essential hypertension Qualified Code(s): I10 - Essential (primary) hypertension (6) Obesity hypoventilation syndrome Current Visit: Yes Status: Chronic (7) Obstructive sleep apnea Current Visit: Yes Status: Chronic (8) Morbid obesity Current Visit: Yes Status: Chronic (9) Former smoker Current Visit: Yes Status: Chronic Subjective Date of service: 03/30/19 Objective Vital Signs Temp Pulse Pulse Pulse Pulse Resp Resp 03/30/19 14:00 107 H 22 03/30/19 13:00 96 H 16 03/30/19 12:00 98.0 F 93 H 20 03/30/19 11:01 104 H 15 03/30/19 10:00 103 H 29 H 03/30/19 09:19 03/30/19 09:14 106 H 104 H 28 H 03/30/19 09:00 105 H 25 H 03/30/19 08:01 96 H 20 03/30/19 08:00 97.6 F 96 H 20 03/30/19 07:01 96 H 26 H 03/30/19 06:00 95 H 17 03/30/19 05:00 97 H 33 H 03/30/19 04:00 94 H 20 03/30/19 03:34 98.4 F 03/30/19 03:00 96 H 25 H 03/30/19 02:00 100 H 21 03/30/19 01:04 03/30/19 01:00 97 H 22 03/30/19 00:00 98 H 16 03/29/19 23:23 98.3 F 03/29/19 23:00 96 H 29 H 03/29/19 22:00 99 H 20 03/29/19 21:10 106 H 03/29/19 21:00 97 H 21 03/29/19 20:15 100 H 03/29/19 20:00 98.4 F 102 H 20 03/29/19 19:00 99 H 21 03/29/19 18:19 99 H 20 03/29/19 18:11 100 H 17 03/29/19 18:01 126 H 34 H 03/29/19 17:51 99 H 15 03/29/19 17:41 100 H 17 03/29/19 17:31 101 H 21 03/29/19 17:21 98 H 19 03/29/19 17:11 96 H 24 03/29/19 17:00 99 H 30 H 03/29/19 16:51 99 H 28 H 03/29/19 16:41 97 H 22 03/29/19 16:31 105 H 24 03/29/19 16:25 108 H 03/29/19 16:21 97 H 25 H 03/29/19 16:11 100 H 30 H 03/29/19 16:01 101 H 23 03/29/19 16:00 97.7 F 101 H 23 03/29/19 15:51 99 H 25 H 03/29/19 15:41 96 H 17 03/29/19 15:31 100 H 26 H 03/29/19 15:21 100 H 28 H 03/29/19 15:11 100 H 18 Resp BP Pulse Ox 03/30/19 14:00 135/95 86 03/30/19 13:00 128/95 91 03/30/19 12:00 133/87 92 03/30/19 11:01 117/68 87 03/30/19 10:00 117/68 89 03/30/19 09:19 90 03/30/19 09:14 29 H 03/30/19 09:00 110/61 89 03/30/19 08:01 230/116 93 03/30/19 08:00 93 03/30/19 07:01 156/85 92 03/30/19 06:00 123/78 94 03/30/19 05:00 131/91 89 03/30/19 04:00 150/90 92 03/30/19 03:34 03/30/19 03:00 142/83 91 03/30/19 02:00 124/92 90 03/30/19 01:04 91 03/30/19 01:00 143/95 90 03/30/19 00:00 128/80 92 03/29/19 23:23 03/29/19 23:00 123/77 93 03/29/19 22:00 95/74 91 03/29/19 21:10 20 03/29/19 21:00 109/69 93 03/29/19 20:15 03/29/19 20:00 107/71 94 03/29/19 19:00 114/78 92 03/29/19 18:19 104/75 94 03/29/19 18:11 104/75 92 03/29/19 18:01 104/75 90 03/29/19 17:51 103/60 92 03/29/19 17:41 103/60 03/29/19 17:31 103/60 94 03/29/19 17:21 103/60 93 03/29/19 17:11 103/60 94 03/29/19 17:00 103/60 93 03/29/19 16:51 105/69 94 03/29/19 16:41 105/69 97 03/29/19 16:31 105/69 96 03/29/19 16:25 24 94 03/29/19 16:21 105/69 92 03/29/19 16:11 105/69 92 03/29/19 16:01 105/69 92 03/29/19 16:00 92 03/29/19 15:51 114/65 94 03/29/19 15:41 114/65 94 03/29/19 15:31 114/65 93 03/29/19 15:21 114/65 93 03/29/19 15:11 114/65 94 - Physical Examination HEENT: Positive: PERRL, Normocephaly, Mucus Membranes Moist Neck: Positive: neck supple, trachea midline Neuro: Positive: Grossly Intact Abdomen: Negative: Tender Skin: Negative: Rash Musculoskeletal: No Pain Extremities: Absent: edema - Labs and Meds CBC 03/30/19 Range/Units 09:23 WBC 10.1 (4.5-11.0) K/mm3 RBC 5.50 H (3.65-5.03) M/mm3 Hgb 14.0 (10.1-14.3) gm/dl Hct 44.8 H (30.3-42.9) % Plt Count 271 (140-440) K/mm3 Comprehensive Metabolic Panel 03/30/19 Range/Units 09:23 Sodium 140 (137-145) mmol/L Potassium 4.4 (3.6-5.0) mmol/L Chloride 98.5 (98-107) mmol/L Carbon Dioxide 27 (22-30) mmol/L BUN 23 H (7-17) mg/dL Creatinine 0.8 (0.7-1.2) mg/dL Glucose 154 H (65-100) mg/dL Calcium 10.5 H (8.4-10.2) mg/dL - Imaging and Cardiology EKG: report reviewed, image reviewed Echo: report reviewed (02/2018 showed EF 55-60%, RA mod to severely dilated, mild TR, impaired relaxation, RV mod to severely dilated, severe pulm HTN with RVSP 90mmHg.) - EKG Sinus rhythms and dysrhythmias: sinus rhythm Repolarization changes or abnormalities: nonspecific abnormality, ST segment, and/or T wave
[2019-03-30 16:03] LABS: ABG Base Excess 1.1 mmol/L (-2.0-3.0); ABG HCO3 25.9 mmol/L (20.0-26.0); ABG Methemoglobin 0.5 % (0.0-1.5); ABG PCO2 41.6 mm Hg; ABG PH 7.411 pH Units (7.350-7.450); ABG PO2 78.4 mm Hg (80.0-90.0)
--- NOTE | 2019-03-30 16:18 | Vascular Lab Report ---
DUPLEX DOPPLER LOWER EXTREMITY VEINS, BILATERAL INDICATION / CLINICAL INFORMATION: Swelling and Syncope. TECHNIQUE: Duplex doppler imaging was performed through the veins of both lower extremities using venous gwyn lorri and other maneuvers. COMPARISON: None available. FINDINGS: Right Common Femoral vein: Negative. Right Femoral vein: Negative. Right Popliteal vein: Negative. Right Calf veins: Negative. Left Common Femoral vein: Negative. Left Femoral vein: Negative. Left Popliteal vein: Negative. Left Calf veins: Negative. Additional findings: None. IMPRESSION: 1. No sonographic evidence for DVT in either lower extremity. Signer Name: Shubham Juarez MD Signed: 03/30/2019 4:14 PM Workstation Name: User Replay
--- NOTE | 2019-03-30 19:48 | Consultation ---
PULMONARY CRITICAL CARE CONSULT NOTE CONSULTING PHYSICIAN: Dr. Self. REASON FOR CONSULTATION: Respiratory failure. CHIEF COMPLAINT AND HISTORY OF PRESENT ILLNESS: The patient is a 58-year-old -Citizen Of The [place] female with past medical history significant amongst other things for a diagnosis of congestive heart failure as well as chronic obstructive lung disease. She tells me she is on 8 liters of home oxygen and also being treated for obstructive sleep apnea, came into the Emergency Room a couple of days ago complaining of shortness of breath, progressive lower extremity swelling, dyspnea on exertion. She stated that she has had 1 or 2 vasovagal sounding episodes, one-time while she was in the bathroom and another time after coughing for a little bit. She had called [facility] after her symptoms developed this time and she had passed out again. She was told that she should call 911 and was brought into the Emergency Room where she was evaluated. She stated that she had been taking increasing doses of her diuretics to try and mitigate against lower extremity swelling and shortness of breath. She denied any gross or streaky hemoptysis. Her cough has been mostly nonproductive and in the past had been blamed on lisinopril, which has since been stopped. She had denied any chest pain. She denied palpitations. She described a feeling of tightening around her chest prior to these vasovagal episodes. As part of the workup in the Emergency Room for her severe hypoxemia, a CT angiogram was done, it was negative for pulmonary emboli, but she continues to require supplemental oxygen significantly above baseline. We are asked to assist with management. When I stopped by to see her, she was resting in bed. She was on high flow nasal cannula, at a flow of 25 liters per minute at 100% FiO2. O2 sats on the monitor only about 91-92%. She did again as mentioned above complain of lower extremity swelling. She denies any history whatsoever of venous thromboembolic phenomenon. She is morbidly obese. Denies significant weight loss or gain. She was compliant with her BiPAP machine up until she had a recent change in her machine and a new was given to her a few weeks back and she has not been able to tolerate it since. With regards to tobacco use or abuse history, she has a 10+ pack year tobacco smoking history, smoking up to a pack a day the time she was smoking the most, but states she quit in 2017. This really is as much of the history of presentation as I have. PAST MEDICAL HISTORY: History of arthritis, history of COPD, history of heart failure, it seems like heart failure with preserved ejection fraction, history of hypertension and history of morbid obesity as well as history of obstructive sleep apnea and gout. PAST SURGICAL HISTORY: She denies past surgical history. MEDICATIONS: She was on at the time I stopped by to see were reviewed. Pertinent medications included the following: Tylenol 650 mg p.o. q. 4 hours p.r.n. mild pain or fevers, [place] 5/325 one tablet p.o. q. 8 hours p.r.n. moderate pain, DuoNeb nebulizer treatments nebulized q. 6 hours, Allopurinol 300 mg p.o. daily, Lasix 40 mg IV b.i.d., p.r.n. milk of magnesia, Solu-Medrol 40 mg IV q. 8 hours, morphine sulfate 2 mg IV q 8 hours p.r.n. moderate pain, nitroglycerin tablets 0.4 mg sublingual q. 5 minutes p.r.n. chest pain, Zofran 4 mg IV q. 8 hours p.r.n. nausea and vomiting, potassium chloride 20 mEq p.o. daily. ALLERGIES: IBUPROFEN and LISINOPRIL causes coughing. DIET: Morbidly obese. Denies acute weight loss or gain preceding few weeks to months. FAMILY AND SOCIAL HISTORY: She lives in the community. She has a 10+ pack year tobacco smoking history. Denies current tobacco, alcohol, illicit drug use or abuse. FAMILY HISTORY: Otherwise, nonsignificant except she states she had a cousin who of venous thromboembolic disease recently. REVIEW OF SYSTEMS: She has had the syncopal episodes. Denies gross hematochezia or melena. Denies gross hematuria or dysuria. No hematemesis. No hemoptysis. She has a chronic dry cough. She denies heat or cold intolerance. Denies polydipsia. Denies polyuria. Denies periods of unexplained sadness and/or elation as may be consistent with psychiatric type disorders. Denies any new onset rashes on her body. She denies any new lumps, bumps or swellings on her body. Complete 13-system review of systems obtained. Pertinent positives and/or negatives as in body of history above, otherwise are noncontributory. PHYSICAL EXAMINATION: VITAL SIGNS: At presentation in the Emergency Room, she was afebrile, temperature 97.5 degrees Fahrenheit with a pulse of 85, respiratory rate of 19, blood pressure 137/65, O2 sats 100%, inspired oxygen concentration at that time was not recorded. When I stopped by to see him, O2 sats were 92% on 100% FiO2 via the high flow nasal cannula. GENERAL: She is a middle-aged, morbidly obese -Citizen Of [place] female, normocephalic, atraumatic, talking to me mostly in full sentences, but with mildly increased respiratory effort at rest. No accessory muscle use. HEAD, EYES, EARS, NOSE AND THROAT: She is anicteric. No conjunctival erythema. Oropharynx is moist. Mallampati #4 oropharynx. NECK: Large neck circumference. No gross jugular venous distention. No thyromegaly. Grossly, there were no palpable lymph nodes in the supraclavicular or submandibular lymph node chains. LUNGS: Auscultation of both lung ortiz significant for diminished/distant breath sounds, slightly prolonged expiratory phase, right lower lobe greater than left lower lobe inspiratory rales. No wheezing. HEART: Heart sounds 1 and 2 were heard. They were regular in rate and rhythm at time of my evaluation without overt rubs or murmurs. ABDOMEN: Soft, full, bowel sounds are positive, nontender. No palpable hepatosplenomegaly. Abdomen was protuberant, but not distended. EXTREMITIES: Without overt digital clubbing or cyanosis. She had 1+ bipedal pitting edema. Pedal pulses were 2+ bilaterally. NEUROLOGIC: Pupils were equal, round, about 5 mm, reactive to light. Extraocular muscle movements were intact. She moved all 4 extremities spontaneously. PSYCHIATRIC: Her mood was normal. Her affect was appropriate. SKIN: Normal turgor without overt cellulitis or rash. LABORATORY DATA: From my review are as follows: Admission white cell count 5700, hemoglobin 12.8, hematocrit 40.4, platelet count 212. No band forms reported. D-dimer was 1130. Serum sodium was 137, potassium 4.0, chloride 98, bicarbonate 23, BUN 15, creatinine 0.8, glucose was 93. Total bilirubin slightly elevated at 1.5. Otherwise, liver function tests within normal limits. Troponin was within normal limits. INR 1.19. No microbiology studies. I have reviewed the CT angiogram. I do agree with the radiologist's interpretation. No gross filling defects consistent with large order pulmonary emboli. She has small lung volumes. She does have cardiomegaly. An evidence of pulmonary arterial hypertension. Some areas of bibasilar dependent atelectasis. No overt interstitial lung changes. No honeycombing. No significantly increased interstitial markings. She does have mild ground glass opacifications that may be related to pulmonary edema. A 2D echocardiogram was also done. I have reviewed the interpretation. It reveals normal ejection fraction of 55-60%, right atrial cavity with severe dilatation, moderate dilatation of right ventricle, moderate tricuspid regurg, right ventricular systolic pressures calculated at 101. No mention of diastolic function. ASSESSMENT: 1. Acute on chronic hypoxemic respiratory failure, presumably secondary to severe pulmonary hypertension. 2. Reported history of chronic obstructive lung disease. 3. History of congestive heart failure. 4. Morbid obesity. 5. Hypertension. 6. Gout. 7. Obstructive sleep apnea. 8. Remote history of tobacco abuse. PLAN: I have tried to explain to her the pathophysiology of pulmonary hypertension. The question is always if this idiopathic pulmonary hypertension or due to some other etiology. Certainly, her comorbidities at play into this. From a congestive heart failure standpoint, diastolic function would have been interesting to know. She will benefit from a right heart catheterization with vasodilator testing. Optimization of cardiac function I will defer to Cardiology. I do agree with gentle diuresis while watching her blood pressure closely, so that we do not alter right ventricular hemodynamics significantly. From a COPD standpoint, I am not convinced by the radiographic picture that with all the electrolytes that we are dealing with severe CO2 retention or obstructive lung disease, I will get an arterial blood gas to better evaluate her pCO2. We will continue bronchodilators as ordered for now. I have explained to her she will need to go on bilevel positive air pressure ventilation therapy as part of mitigation for pulmonary hypertension and this also may be playing into her symptoms in terms of the vasovagal type episodes that may be related to excessive daytime sleepiness. I will empirically put her on BiPAP 25 with an IPAP of 25 on EPAP of 12 based on what she tells me are her home settings. She describes it as 25/. Oxygen will be weaned to keep sats greater than or equal to above 90%. The ABG will help us know if there was good correlation with O2 sats and a pO2. I will continue with this testing for venous thromboembolic phenomenon. Bilateral lower extremity Dopplers will be ordered. She may well benefit from full anticoagulation. I have explained to her that she definitely does need to follow up with pulmonary hypertension specialist. Weight loss has been counseled. I will get an KARIN level as a screen for connective tissue disorders, especially with her history of arthritis and for now, we will continue systemic steroids and taper it slowly. She will be placed on GI prophylaxis as well as DVT prophylaxis. Flu and pneumonia vaccination will be addressed per protocol. Thank you very much for the consult Dr. Self. We will follow along and make further recommendations as the picture progresses/becomes clearer. She is critically ill, on life-sustaining interventions including the high flow nasal cannula and at very high risk of decompensation in the cardiopulmonary systems including the risk of . At this time, I spent a total of about 40-45 minutes of critical care time without overlap and excluding any procedural time that may be necessary. I should mention I will begin her empirically on Revatio for treatment of her pulmonary hypertension at 20 mg p.o. t.i.d. while we are observing her closely in the step-down unit in the ICU. JOB# [id number] BETTY/MUNDO ALICEA
[2019-03-30] MEDS: ENOXAPARIN 40 MG/0.4 ML INJ SUB-Q SCH (22:11)
[2019-03-31] MEDS: IPRATROPIUM/ALBUTEROL SULFATE 3 ML AMPUL.NEB IH SCH ×4 (03:16→21:27)
[2019-03-31] MEDS: methylPREDNISolone Sod Succinate 40 MG/1 ML INJ IV SCH ×3 (05:50→21:56)
[2019-03-31] MEDS: FUROSEMIDE 40 MG/4 ML INJ IV SCH ×2 (05:50→18:38)
[2019-03-31] MEDS: SILDENAFIL 20 MG TAB PO SCH ×3 (08:20→21:55)
[2019-03-31] MEDS: POTASSIUM CHLORIDE ER 20 MEQ TAB PO SCH (09:56)
[2019-03-31] MEDS: allopurinoL 300 MG TAB PO SCH (09:56)
--- NOTE | 2019-03-31 12:13 | Progress Note ---
Assessment and Plan Cont present cardiac management. Pulmonary is following - Sildenafil initiated. The patient has been seen in conjunction with Dr. ASHWIN Shultz who agrees with the assessment and plan of care. - Patient Problems (1) Acute heart failure with preserved ejection fraction Current Visit: Yes Status: Acute (2) Cor pulmonale Current Visit: Yes Status: Acute (3) Moderate to severe pulmonary hypertension Current Visit: Yes Status: Chronic (4) Acute and chronic respiratory failure with hypoxia Current Visit: Yes Status: Acute (5) Hypertension Current Visit: Yes Status: Chronic Qualifiers: Hypertension type: essential hypertension Qualified Code(s): I10 - Essential (primary) hypertension (6) Obesity hypoventilation syndrome Current Visit: Yes Status: Chronic (7) Obstructive sleep apnea Current Visit: Yes Status: Chronic (8) Morbid obesity Current Visit: Yes Status: Chronic (9) Former smoker Current Visit: Yes Status: Chronic Subjective Date of service: 03/31/19 Principal diagnosis: HF; cor pulmonale; pulm HTN Interval history: pt resting in bed, remains on HiFlo NC. Objective Last Vital Signs Temp 99.5 F 03/31/19 04:00 Pulse 99 H 03/31/19 11:00 Resp 26 H 03/31/19 11:00 BP 145/82 03/31/19 11:00 Pulse Ox 89 03/31/19 11:00 - Physical Examination General: No Apparent Distress HEENT: Positive: PERRL, Normocephaly, Mucus Membranes Moist Neck: Positive: neck supple, trachea midline Cardiac: Positive: Reg Rate and Rhythm, S1/S2 Lungs: Positive: Decreased Breath Sounds, Oxygen Neuro: Positive: Grossly Intact Abdomen: Negative: Tender Skin: Negative: Rash Musculoskeletal: No Pain Extremities: Absent: edema - Imaging and Cardiology EKG: report reviewed, image reviewed Echo: report reviewed (03/2019: EF 55-60%, LA mildly dilated, RA severely dilated, RV mod dilated, mild MR, mod TR, severe pulmonary HTN with RVSP 101mmHg. 02/2018 showed EF 55-60%, RA mod to severely dilated, mild TR, impaired relaxation, RV mod to severely dilated, severe pulm HTN with RVSP 90mmHg.) - Telemetry EKG Rhythm: Sinus Rhythm - EKG Sinus rhythms and dysrhythmias: sinus rhythm Repolarization changes or abnormalities: nonspecific abnormality, ST segment, and/or T wave
--- NOTE | 2019-03-31 12:33 | Event Note ---
Date: 03/31/19 Called [facility] at [phone]; spoke with their physician who promised to radha placido Coello at [facility] for tentative transfer to their hospital for hemodynamic interrogation and management of severe pulmonary HTN
[2019-03-31] MEDS: FAMOTIDINE 20 MG/2 ML INJ IV SCH (13:27)
--- NOTE | 2019-03-31 14:15 | Event Note ---
Date: 03/31/19 Received call back from [place]. Asked to place patient on 100% NRB and if patient maintains O2 sat's > 90% then she will be accepted in transfer to [facility] Patient is tolerating 100% NRB and i have left a message on [place] line that she is stable for transfer.
--- NOTE | 2019-03-31 14:17 | Progress Note ---
Subjective Date of service: 03/31/19 Principal diagnosis: HF; cor pulmonale; pulm HTN Objective Vital Signs - 12hr 03/31/19 03/31/19 03/31/19 03:00 03:16 04:00 Temperature 99.5 F Pulse Rate 90 88 Pulse Rate [ 88 Bilateral Bases ] Pulse Rate [ Bilateral] Pulse Rate [ 85 From Monitor] Respiratory 20 33 H Rate Respiratory 20 Rate [Bilateral Bases] Respiratory Rate [Bilateral ] Blood Pressure 109/73 115/79 O2 Sat by Pulse 87 90 Oximetry 03/31/19 03/31/19 03/31/19 05:00 06:00 07:00 Temperature Pulse Rate 87 86 91 H Pulse Rate [ Bilateral Bases ] Pulse Rate [ Bilateral] Pulse Rate [ From Monitor] Respiratory 21 20 22 Rate Respiratory Rate [Bilateral Bases] Respiratory Rate [Bilateral ] Blood Pressure 107/66 112/70 128/66 O2 Sat by Pulse 89 89 90 Oximetry 03/31/19 03/31/19 03/31/19 07:54 08:00 09:00 Temperature 98.1 F Pulse Rate 91 H Pulse Rate [ 92 H Bilateral Bases ] Pulse Rate [ 96 H Bilateral] Pulse Rate [ 100 H From Monitor] Respiratory 21 Rate Respiratory 18 Rate [Bilateral Bases] Respiratory 22 Rate [Bilateral ] Blood Pressure 123/71 O2 Sat by Pulse 93 93 Oximetry 03/31/19 03/31/19 03/31/19 09:01 10:00 11:00 Temperature Pulse Rate 105 H 103 H 99 H Pulse Rate [ Bilateral Bases ] Pulse Rate [ Bilateral] Pulse Rate [ From Monitor] Respiratory 18 22 26 H Rate Respiratory Rate [Bilateral Bases] Respiratory Rate [Bilateral ] Blood Pressure 97/42 122/91 145/82 O2 Sat by Pulse 85 87 89 Oximetry 03/31/19 03/31/19 03/31/19 12:00 13:01 14:00 Temperature 97.5 F L Pulse Rate 95 H 91 H 108 H Pulse Rate [ Bilateral Bases ] Pulse Rate [ Bilateral] Pulse Rate [ 85 From Monitor] Respiratory 30 H 24 25 H Rate Respiratory Rate [Bilateral Bases] Respiratory Rate [Bilateral ] Blood Pressure 132/71 158/107 158/107 O2 Sat by Pulse 88 90 94 Oximetry 03/31/19 14:15 Temperature Pulse Rate Pulse Rate [ 109 H Bilateral Bases ] Pulse Rate [ 108 H Bilateral] Pulse Rate [ From Monitor] Respiratory Rate Respiratory 20 Rate [Bilateral Bases] Respiratory 22 Rate [Bilateral ] Blood Pressure O2 Sat by Pulse Oximetry CBC and BMP: 03/30/19 09:23 03/30/19 09:23 ABG, PT/INR, D-dimer: ABG ABG pH 7.411 pH Units (7.350-7.450) 03/30/19 15:25 ABG pCO2 41.6 mm Hg 03/30/19 15:25 ABG pO2 78.4 mm Hg (80.0-90.0) L 03/30/19 15:25 ABG O2 Saturation 96.0 % (95.0-99.0) 03/30/19 15:25 PT/INR, D-dimer PT 15.3 Sec. (12.2-14.9) H 03/28/19 03:18 INR 1.19 (0.87-1.13) H 03/28/19 03:18 D-Dimer 1130.51 ng/mlDDU (0-234) H 03/27/19 15:54 Abnormal lab findings: Abnormal Labs 03/27/19 03/27/19 03/27/19 15:54 15:54 15:54 RBC Hct MCH 26 L RDW 19.6 H Lymph % (Auto) [place] % (Auto) Monocytes % (Manual) 10.0 H PT INR APTT D-Dimer 1130.51 H ABG pO2 Oxyhemoglobin BUN Glucose Calcium Total Bilirubin 1.50 H NT-Pro-B Natriuret Pep Albumin 3.6 L 03/27/19 03/28/19 03/28/19 17:15 03:18 03:18 RBC 5.16 H Hct MCH 26 L RDW 19.3 H Lymph % (Auto) 39.1 H [place] % (Auto) 10.1 H Monocytes % (Manual) PT 15.3 H INR 1.19 H APTT 39.8 H D-Dimer ABG pO2 Oxyhemoglobin BUN Glucose Calcium Total Bilirubin NT-Pro-B Natriuret Pep 1903 H Albumin 03/28/19 03/30/19 03/30/19 03:18 09:23 09:23 RBC 5.50 H Hct 44.8 H MCH 25 L RDW 19.7 H Lymph % (Auto) [place] % (Auto) Monocytes % (Manual) PT INR APTT D-Dimer ABG pO2 Oxyhemoglobin BUN 23 H Glucose 128 H 154 H Calcium 10.5 H Total Bilirubin NT-Pro-B Natriuret Pep Albumin 03/30/19 15:25 RBC Hct MCH RDW Lymph % (Auto) [place] % (Auto) Monocytes % (Manual) PT INR APTT D-Dimer ABG pO2 78.4 L Oxyhemoglobin 94.0 L BUN Glucose Calcium Total Bilirubin NT-Pro-B Natriuret Pep Albumin
--- NOTE | 2019-03-31 15:29 | Progress Note ---
Assessment and Plan Patient awake, Patient presently non rebreathing mask. FIO2 100%. O2 saturation running 91%. Patient anxious. Slight increase in work of breathing. Patient s heart rate 104, B/P 140/80. - Patient Problems (1) Acute and chronic respiratory failure with hypoxia Current Visit: Yes Status: Acute Plan to address problem: Continue non rebreathing mask. If increased work of breathing. Placed her on BIPAP. Albuterol/atrovent aerosol treatments q 6 hours. Continue I/V solumedrol. Continue S/C Lovenox. Continue famotidine. (2) COPD exacerbation Current Visit: Yes Status: Acute Plan to address problem: Continue non rebreathing mask. If increased work of breathing. Placed her on BIPAP. Albuterol/atrovent aerosol treatments q 6 hours. Continue I/V solumedrol. Continue S/C Lovenox. Continue famotidine. (3) Acute exacerbation of congestive heart failure Current Visit: Yes Status: Acute Qualifiers: Heart failure type: unspecified Qualified Code(s): I50.9 - Heart failure, unspecified Plan to address problem: Management as per cardiology. (4) Cor pulmonale Current Visit: Yes Status: Acute Plan to address problem: Continue optimize treatment for COPD , sleep apnea, CHF. (5) Moderate to severe pulmonary hypertension Current Visit: Yes Status: Chronic Plan to address problem: Continue optimize treatment for COPD , sleep apnea, CHF. (6) Morbid obesity Current Visit: Yes Status: Chronic Plan to address problem: Recommend to loose weight. Diet and exercise. (7) Obesity hypoventilation syndrome Current Visit: Yes Status: Chronic Plan to address problem: BIPAP during night time and prn for shortness of breath during day time. (8) Obstructive sleep apnea Current Visit: Yes Status: Chronic Plan to address problem: BIPAP during night time and prn for shortness of breath during day time. Subjective Date of service: 03/31/19 Principal diagnosis: HF; cor pulmonale; pulm HTN Interval history: Patient awake, Patient presently non rebreathing mask. FIO2 100%. O2 saturation running 91%. Patient anxious. Slight increase in work of breathing. Patient s heart rate 104, B/P 140/80. Objective Vital Signs - 12hr 03/31/19 03/31/19 03/31/19 04:00 05:00 06:00 Temperature 99.5 F Pulse Rate 88 87 86 Pulse Rate [ Bilateral Bases ] Pulse Rate [ Bilateral] Pulse Rate [ 85 From Monitor] Respiratory 33 H 21 20 Rate Respiratory Rate [Bilateral Bases] Respiratory Rate [Bilateral ] Blood Pressure 115/79 107/66 112/70 O2 Sat by Pulse 90 89 89 Oximetry 03/31/19 03/31/19 03/31/19 07:00 07:54 08:00 Temperature 98.1 F Pulse Rate 91 H 91 H Pulse Rate [ 92 H Bilateral Bases ] Pulse Rate [ 96 H Bilateral] Pulse Rate [ 100 H From Monitor] Respiratory 22 21 Rate Respiratory 18 Rate [Bilateral Bases] Respiratory 22 Rate [Bilateral ] Blood Pressure 128/66 123/71 O2 Sat by Pulse 90 93 Oximetry 03/31/19 03/31/19 03/31/19 09:00 09:01 10:00 Temperature Pulse Rate 105 H 103 H Pulse Rate [ Bilateral Bases ] Pulse Rate [ Bilateral] Pulse Rate [ From Monitor] Respiratory 18 22 Rate Respiratory Rate [Bilateral Bases] Respiratory Rate [Bilateral ] Blood Pressure 97/42 122/91 O2 Sat by Pulse 93 85 87 Oximetry 03/31/19 03/31/19 03/31/19 11:00 12:00 13:01 Temperature 97.5 F L Pulse Rate 99 H 95 H 91 H Pulse Rate [ Bilateral Bases ] Pulse Rate [ Bilateral] Pulse Rate [ 85 From Monitor] Respiratory 26 H 30 H 24 Rate Respiratory Rate [Bilateral Bases] Respiratory Rate [Bilateral ] Blood Pressure 145/82 132/71 158/107 O2 Sat by Pulse 89 88 90 Oximetry 03/31/19 03/31/19 03/31/19 14:00 14:15 15:00 Temperature Pulse Rate 108 H 104 H Pulse Rate [ 109 H Bilateral Bases ] Pulse Rate [ 108 H Bilateral] Pulse Rate [ From Monitor] Respiratory 25 H 25 H Rate Respiratory 20 Rate [Bilateral Bases] Respiratory 22 Rate [Bilateral ] Blood Pressure 158/107 140/80 O2 Sat by Pulse 94 91 Oximetry Constitutional: no acute distress, alert Eyes: non-icteric ENT: oropharynx moist Neck: supple, no lymphadenopathy Effort: mildly labored Ascultation: Bilateral: diminished breath sounds Cardiovascular: regular rate and rhythm Gastrointestinal: normoactive bowel sounds, soft, non-tender Integumentary: normal Extremities: no cyanosis, edema Neurologic: normal mental status, non-focal exam, pupils equal and round, CN II- XII normal, other Psychiatric: anxious CBC and BMP: 03/30/19 09:23 03/30/19 09:23 ABG, PT/INR, D-dimer: ABG ABG pH 7.411 pH Units (7.350-7.450) 03/30/19 15:25 ABG pCO2 41.6 mm Hg 03/30/19 15:25 ABG pO2 78.4 mm Hg (80.0-90.0) L 03/30/19 15:25 ABG O2 Saturation 96.0 % (95.0-99.0) 03/30/19 15:25 PT/INR, D-dimer PT 15.3 Sec. (12.2-14.9) H 03/28/19 03:18 INR 1.19 (0.87-1.13) H 03/28/19 03:18 D-Dimer 1130.51 ng/mlDDU (0-234) H 03/27/19 15:54 Abnormal lab findings: Abnormal Labs 03/27/19 03/27/19 03/27/19 15:54 15:54 15:54 RBC Hct MCH 26 L RDW 19.6 H Lymph % (Auto) [place] % (Auto) Monocytes % (Manual) 10.0 H PT INR APTT D-Dimer 1130.51 H ABG pO2 Oxyhemoglobin BUN Glucose Calcium Total Bilirubin 1.50 H NT-Pro-B Natriuret Pep Albumin 3.6 L 03/27/19 03/28/19 03/28/19 17:15 03:18 03:18 RBC 5.16 H Hct MCH 26 L RDW 19.3 H Lymph % (Auto) 39.1 H [place] % (Auto) 10.1 H Monocytes % (Manual) PT 15.3 H INR 1.19 H APTT 39.8 H D-Dimer ABG pO2 Oxyhemoglobin BUN Glucose Calcium Total Bilirubin NT-Pro-B Natriuret Pep 1903 H Albumin 03/28/19 03/30/19 03/30/19 03:18 09:23 09:23 RBC 5.50 H Hct 44.8 H MCH 25 L RDW 19.7 H Lymph % (Auto) [place] % (Auto) Monocytes % (Manual) PT INR APTT D-Dimer ABG pO2 Oxyhemoglobin BUN 23 H Glucose 128 H 154 H Calcium 10.5 H Total Bilirubin NT-Pro-B Natriuret Pep Albumin 03/30/19 15:25 RBC Hct MCH RDW Lymph % (Auto) [place] % (Auto) Monocytes % (Manual) PT INR APTT D-Dimer ABG pO2 78.4 L Oxyhemoglobin 94.0 L BUN Glucose Calcium Total Bilirubin NT-Pro-B Natriuret Pep Albumin Chest x-ray: report reviewed (Persistent cardiomegaly with mild pulmonary venous hypertension.), image reviewed CT scan - chest: report reviewed, image reviewed Additional Studies: Angio CT of chest. 03/27/19. IMPRESSION: 1. No evidence of acute PTE. 2. Moderate generalized cardiomegaly. Reflux of contrast into the IVC and hepatic veins is characteristic of right heart failure. 3. Enlargement of the central pulmonary arteries is consistent with pulmonary arterial hypertension. Venous doppler studies of legs.03/30/19 No venographic evidence of DVT.
--- NOTE | 2019-03-31 15:52 | Progress Note ---
Assessment and Plan Assessment and plan: --Acute on chronic respiratory failure with Cor pulmonale on 100% Fio2, saturating 89-91% Pulmonary following, cont nebs, serial abg Discussed with [facility] physician for transfer to [facility] The physician recommended possible transfer tomorrow Advised to continue 100% nonrebreather to maintain O2 sats to more than 90% --Moderate to severe pulmonary hypertension Sildenafil started by pulmonary Planning transfer to [facility] --Acute heart failure with preserved ejection fraction cont lasix iv, cardiology following monitor ins/os, daily wt, supplemental O2 --Obstructive sleep apnea; CPAP BiPAP at night And as needed daytime --Hypertension; moderate control Continue current antihypertensives and when necessary medications --Obesity hypoventilation syndrome BiPAP at bedtime --Morbid obesity; BMI 51.6 Advice weight reduction when medically stable, may benefit from referral for bariatric surgery Weight reduction program as outpatient --Dvt Px, lovenox The high probability of a clinically significant, sudden or life threatening deterioration of the [respiratory, CVS] system(s) required my full and direct attention, intervention and personal management. The aggregate critical care time was [33] minutes. This time is in addition to time spent performing reported procedures but includes the following: [x] Data Review and interpretation [x] Patient assessment and monitoring of vital signs [x] Documentation [x] Medication orders and management Discussed with [facility], and receiving physician They agreed to transfer the patient tomorrow History Interval history: Patient seen and examined this morning medical records reviewed Patient is high flow oxygen dependent Hospitalist Physical - Constitutional Vitals: Temp Pulse Resp BP Pulse Ox 97.5 F L 104 H 25 H 140/80 91 03/31/19 12:00 03/31/19 15:00 03/31/19 15:00 03/31/19 15:00 03/31/19 15:00 General appearance: Present: no acute distress, well-nourished, obese (morbidly obese) - EENT Eyes: Present: PERRL, EOM intact - Neck Neck: Present: supple, normal ROM - Respiratory Respiratory effort: labored Respiratory: bilateral: diminished, rhonchi, negative: rales, wheezing - Cardiovascular Rhythm: regular Heart Sounds: Present: S1 & S2 - Extremities Extremities: no ischemia, No edema - Abdominal General gastrointestinal: soft, non-tender, non-distended, normal bowel sounds - Integumentary Integumentary: Present: clear, warm - Psychiatric Psychiatric: appropriate mood/affect, cooperative - Neurologic Neurologic: CNII-XII intact, moves all extremities Results - Labs CBC & Chem 7: 03/30/19 09:23 03/30/19 09:23 Labs: Laboratory Last Values WBC 10.1 K/mm3 (4.5-11.0) 03/30/19 09:23 RBC 5.50 M/mm3 (3.65-5.03) H 03/30/19 09:23 Hgb 14.0 gm/dl (10.1-14.3) 03/30/19 09:23 Hct 44.8 % (30.3-42.9) H 03/30/19 09:23 MCV 82 fl (79-97) 03/30/19 09:23 MCH 25 pg (28-32) L 03/30/19 09:23 MCHC 31 % (30-34) 03/30/19 09:23 RDW 19.7 % (13.2-15.2) H 03/30/19 09:23 Plt Count 271 K/mm3 (140-440) 03/30/19 09:23 Lymph % (Auto) 39.1 % (13.4-35.0) H 03/28/19 03:18 [place] % (Auto) 10.1 % (0.0-7.3) H 03/28/19 03:18 Eos % (Auto) 1.2 % (0.0-4.3) 03/28/19 03:18 Baso % (Auto) 1.2 % (0.0-1.8) 03/28/19 03:18 Lymph # 2.5 K/mm3 (1.2-5.4) 03/28/19 03:18 [place] # 0.6 K/mm3 (0.0-0.8) 03/28/19 03:18 Eos # 0.1 K/mm3 (0.0-0.4) 03/28/19 03:18 Baso # 0.1 K/mm3 (0.0-0.1) 03/28/19 03:18 Add Manual Diff Complete 03/27/19 15:54 Total Counted 100 03/27/19 15:54 Seg Neutrophils % 48.4 % (40.0-70.0) 03/28/19 03:18 Seg Neuts % (Manual) 63.0 % (40.0-70.0) 03/27/19 15:54 Band Neutrophils % 0 % 03/27/19 15:54 Lymphocytes % (Manual) 24.0 % (13.4-35.0) 03/27/19 15:54 Reactive Lymphs % (Man) 0 % 03/27/19 15:54 Monocytes % (Manual) 10.0 % (0.0-7.3) H 03/27/19 15:54 Eosinophils % (Manual) 3.0 % (0.0-4.3) 03/27/19 15:54 Basophils % (Manual) 0 % (0.0-1.8) 03/27/19 15:54 Metamyelocytes % 0 % 03/27/19 15:54 Myelocytes % 0 % 03/27/19 15:54 Promyelocytes % 0 % 03/27/19 15:54 Blast Cells % 0 % 03/27/19 15:54 Nucleated RBC % Not Reportable 03/27/19 15:54 Seg Neutrophils # 3.0 K/mm3 (1.8-7.7) 03/28/19 03:18 Seg Neutrophils # Man 3.6 K/mm3 (1.8-7.7) 03/27/19 15:54 Band Neutrophils # 0.0 K/mm3 03/27/19 15:54 Lymphocytes # (Manual) 1.4 K/mm3 (1.2-5.4) 03/27/19 15:54 Abs React Lymphs (Man) 0.0 K/mm3 03/27/19 15:54 Monocytes # (Manual) 0.6 K/mm3 (0.0-0.8) 03/27/19 15:54 Eosinophils # (Manual) 0.2 K/mm3 (0.0-0.4) 03/27/19 15:54 Basophils # (Manual) 0.0 K/mm3 (0.0-0.1) 03/27/19 15:54 Metamyelocytes # 0.0 K/mm3 03/27/19 15:54 Myelocytes # 0.0 K/mm3 03/27/19 15:54 Promyelocytes # 0.0 K/mm3 03/27/19 15:54 Blast Cells # 0.0 K/mm3 03/27/19 15:54 WBC Morphology Not Reportable 03/27/19 15:54 Hypersegmented Neuts Not Reportable 03/27/19 15:54 Hyposegmented Neuts Not Reportable 03/27/19 15:54 Hypogranular Neuts Not Reportable 03/27/19 15:54 Smudge Cells Not Reportable 03/27/19 15:54 Toxic Granulation Not Reportable 03/27/19 15:54 Toxic Vacuolation Not Reportable 03/27/19 15:54 Dohle Bodies Not Reportable 03/27/19 15:54 Pelger-Huet Anomaly Not Reportable 03/27/19 15:54 Rodney Rods Not Reportable 03/27/19 15:54 Platelet Estimate Consistent w auto 03/27/19 15:54 Clumped Platelets Not Reportable 03/27/19 15:54 Plt Clumps, EDTA Not Reportable 03/27/19 15:54 Large Platelets 1+ 03/27/19 15:54 Giant Platelets Not Reportable 03/27/19 15:54 Platelet Satelliting Not Reportable 03/27/19 15:54 Plt Morphology Comment Not Reportable 03/27/19 15:54 RBC Morphology Not Reportable 03/27/19 15:54 Dimorphic RBCs Not Reportable 03/27/19 15:54 Polychromasia Not Reportable 03/27/19 15:54 Hypochromasia 1+ 03/27/19 15:54 Poikilocytosis Not Reportable 03/27/19 15:54 Anisocytosis Not Reportable 03/27/19 15:54 Microcytosis Not Reportable 03/27/19 15:54 Macrocytosis Not Reportable 03/27/19 15:54 Spherocytes Not Reportable 03/27/19 15:54 Pappenheimer Bodies Not Reportable 03/27/19 15:54 Sickle Cells Not Reportable 03/27/19 15:54 Target Cells 1+ 03/27/19 15:54 Tear Drop Cells Not Reportable 03/27/19 15:54 Ovalocytes Few 03/27/19 15:54 Helmet Cells Not Reportable 03/27/19 15:54 Funez-[place] Bodies Not Reportable 03/27/19 15:54 [place] Rings Not Reportable 03/27/19 15:54 [place] Cells Not Reportable 03/27/19 15:54 Bite Cells Not Reportable 03/27/19 15:54 Crenated Cell Not Reportable 03/27/19 15:54 Elliptocytes Not Reportable 03/27/19 15:54 Acanthocytes (Spur) Not Reportable 03/27/19 15:54 Rouleaux Not Reportable 03/27/19 15:54 Hemoglobin C Crystals Not Reportable 03/27/19 15:54 Schistocytes Not Reportable 03/27/19 15:54 Malaria parasites Not Reportable 03/27/19 15:54 Marc Bodies Not Reportable 03/27/19 15:54 Hem Pathologist Commnt No 03/27/19 15:54 PT 15.3 Sec. (12.2-14.9) H 03/28/19 03:18 INR 1.19 (0.87-1.13) H 03/28/19 03:18 APTT 39.8 Sec. (24.2-36.6) H 03/28/19 03:18 D-Dimer 1130.51 ng/mlDDU (0-234) H 03/27/19 15:54 ABG pH 7.411 pH Units (7.350-7.450) 03/30/19 15:25 ABG pCO2 41.6 mm Hg 03/30/19 15:25 ABG pO2 78.4 mm Hg (80.0-90.0) L 03/30/19 15:25 ABG HCO3 25.9 mmol/L (20.0-26.0) 03/30/19 15:25 ABG O2 Saturation 96.0 % (95.0-99.0) 03/30/19 15:25 ABG O2 Content 18.8 (0.0-44) 03/30/19 15:25 ABG Base Excess 1.1 mmol/L (-2.0-3.0) 03/30/19 15:25 ABG Hemoglobin 14.2 gm/dl (12.0-16.0) 03/30/19 15:25 ABG Carboxyhemoglobin 1.7 % (0.0-5.0) 03/30/19 15:25 ABG Methemoglobin 0.5 % (0.0-1.5) 03/30/19 15:25 Oxyhemoglobin 94.0 % (95.0-99.0) L 03/30/19 15:25 FiO2 10 % 03/30/19 15:25 Sodium 140 mmol/L (137-145) 03/30/19 09:23 Potassium 4.4 mmol/L (3.6-5.0) 03/30/19 09:23 Chloride 98.5 mmol/L (98-107) 03/30/19 09:23 Carbon Dioxide 27 mmol/L (22-30) 03/30/19 09:23 Anion Gap 19 mmol/L 03/30/19 09:23 BUN 23 mg/dL (7-17) H 03/30/19 09:23 Creatinine 0.8 mg/dL (0.7-1.2) 03/30/19 09:23 Estimated GFR > 60 ml/min 03/30/19 09:23 BUN/Creatinine Ratio 29 % 03/30/19 09:23 Glucose 154 mg/dL (65-100) H 03/30/19 09:23 Calcium 10.5 mg/dL (8.4-10.2) H 03/30/19 09:23 Total Bilirubin 1.50 mg/dL (0.1-1.2) H 03/27/19 15:54 AST 40 units/L (5-40) 03/27/19 15:54 ALT 33 units/L (7-56) 03/27/19 15:54 Alkaline Phosphatase 69 units/L (35-129) 03/27/19 15:54 Troponin T < 0.010 ng/mL (0.00-0.029) 03/27/19 15:54 NT-Pro-B Natriuret Pep 1903 pg/mL (0-900) H 03/27/19 17:15 Total Protein 7.7 g/dL (6.3-8.2) 03/27/19 15:54 Albumin 3.6 g/dL (3.9-5) L 03/27/19 15:54 Albumin/Globulin Ratio 0.9 % 03/27/19 15:54 Active Medications - Current Medications Current Medications: Generic Name Dose Route Start Last Admin Trade Name Freq PRN Reason Stop Dose Admin Acetaminophen 650 mg 03/27/19 23:25 Tylenol PO Q4H PRN Pain MILD(1-3)/Fever >100.5/SHETTY Acetaminophen/Hydrocodone Bitart 1 each 03/28/19 17:55 [place] 5/325 PO Q8H PRN Pain, Moderate (4-6) Albuterol/Ipratropium 1 ampul 03/28/19 02:00 03/31/19 14:15 Duoneb *Not For Prn Use* IH 1 ampul Q6HRT DAHLIA Administration Allopurinol 300 mg 03/28/19 16:00 03/31/19 09:56 Zyloprim PO 300 mg QDAY DAHLIA Administration Enoxaparin Sodium 40 mg 03/30/19 22:00 03/30/19 22:11 Enoxaparin SUB-Q 40 mg QDAY@2200 DAHLIA Administration Famotidine 20 mg 03/31/19 14:00 03/31/19 13:27 Pepcid IV 20 mg QDAY DAHLIA Administration Furosemide 40 mg 03/28/19 06:00 03/31/19 05:50 Lasix IV 40 mg BID@0600,1800 DAHLIA Administration Magnesium Hydroxide 30 ml 03/27/19 23:25 Milk Of Magnesia PO Q4H PRN Constipation Methylprednisolone Sodium Succinate 40 mg 03/28/19 06:00 03/31/19 13:27 Solu-Medrol IV 40 mg Q8HR DAHLIA Administration Morphine Sulfate 2 mg 03/27/19 23:25 Morphine IV Q4H PRN Pain, Moderate (4-6) Nitroglycerin 0.4 mg 03/27/19 23:25 Nitrostat SL .Q5MIN PRN Chest Pain Ondansetron HCl 4 mg 03/27/19 23:25 Zofran IV Q8H PRN Nausea And Vomiting Potassium Chloride 20 meq 03/28/19 16:00 03/31/19 09:56 K-Dur PO 20 meq QDAY DAHLIA Administration Sildenafil Citrate 20 mg 03/30/19 14:00 03/31/19 13:27 Revatio PO 20 mg TID DAHLIA Administration Sodium Chloride 10 ml 03/28/19 10:00 03/31/19 09:56 Sodium Chloride Flush Syringe 10 Ml IV 10 ml BID DAHLIA Administration Sodium Chloride 10 ml 03/27/19 23:25 Sodium Chloride Flush Syringe 10 Ml IV PRN PRN LINE FLUSH
[2019-03-31] MEDS: ENOXAPARIN 40 MG/0.4 ML INJ SUB-Q SCH (21:55)
[2019-04-01] MEDS: IPRATROPIUM/ALBUTEROL SULFATE 3 ML AMPUL.NEB IH SCH ×3 (03:14→15:36)
[2019-04-01] MEDS: FUROSEMIDE 40 MG/4 ML INJ IV SCH (06:47)
[2019-04-01] MEDS: methylPREDNISolone Sod Succinate 40 MG/1 ML INJ IV SCH ×2 (06:47→15:20)
[2019-04-01] MEDS: SILDENAFIL 20 MG TAB PO SCH ×2 (08:06→15:21)
[2019-04-01 08:51] LABS: Basophils % (Auto) 0.1 % (0.0-1.8); Lymphocytes % (Auto) 12.4 % (13.4-35.0); Mean Corpuscular HGB Conc 31 % (30-34); Mean Corpuscular Volume 82 fl (79-97); Monocytes # (Auto) 0.4 K/mm3 (0.0-0.8); Monocytes % (Auto) 4.8 % (0.0-7.3); Platelet Count 241 K/mm3 (140-440); Red Blood Count 5.76 M/mm3 (3.65-5.03); Red Cell Distribution Width 19.3 % (13.2-15.2)
[2019-04-01 09:13] LABS: Hemoglobin 14.6 gm/dl (10.1-14.3)
[2019-04-01 09:14] LABS: Hematocrit 47.2 % (30.3-42.9)
[2019-04-01 09:26] LABS: BUN/Creatinine Ratio 40; Blood Urea Nitrogen 32 mg/dL (7-17); Calcium 10.1 mg/dL (8.4-10.2); Hemolysis Index 28
[2019-04-01] MEDS: POTASSIUM CHLORIDE ER 20 MEQ TAB PO SCH (09:39)
[2019-04-01] MEDS: FAMOTIDINE 20 MG/2 ML INJ IV SCH (09:46)
[2019-04-01] MEDS: allopurinoL 300 MG TAB PO SCH (09:46)
--- NOTE | 2019-04-01 11:05 | Progress Note ---
Assessment and Plan Assessment and plan: --Acute on chronic respiratory failure with Cor pulmonale on 100% Fio2, saturating 89-91% Pulmonary following, cont nebs, serial abg Discussed with [facility] physician for transfer to [facility] The physician recommended possible transfer on 04/01/19 today Advised to continue 100% nonrebreather to maintain O2 sats to more than 90% --Moderate to severe pulmonary hypertension Sildenafil started by pulmonary Planning transfer to [facility] --Acute heart failure with preserved ejection fraction cont lasix iv, cardiology following monitor ins/os, daily wt, supplemental O2 --Obstructive sleep apnea; CPAP BiPAP at night And as needed daytime --Hypertension; moderate control Continue current antihypertensives and when necessary medications --Obesity hypoventilation syndrome BiPAP at bedtime --Morbid obesity; BMI 51.6 Advice weight reduction when medically stable, may benefit from referral for bariatric surgery Weight reduction program as outpatient --Dvt Px, lovenox. Continue current management Pending transfer to [facility] History Interval history: Patient seen and examined medical records reviewed Patient continues to be short of breath On Ventimask/high flow oxygen Awaiting transfer to [facility] Hospitalist Physical - Constitutional Vitals: Temp Pulse Resp BP Pulse Ox 99.0 F 97 H 27 H 119/79 88 04/01/19 07:59 04/01/19 10:00 04/01/19 10:00 04/01/19 10:00 04/01/19 10:00 General appearance: Present: mild distress, well-nourished, obese (morbidly obese) - EENT Eyes: Present: PERRL, EOM intact - Neck Neck: Present: supple, normal ROM - Respiratory Respiratory effort: normal Respiratory: bilateral: diminished, rhonchi, negative: rales, wheezing - Cardiovascular Rhythm: regular Heart Sounds: Present: S1 & S2 - Extremities Extremities: no ischemia, No edema - Abdominal General gastrointestinal: soft, non-tender, non-distended, normal bowel sounds - Integumentary Integumentary: Present: clear, warm - Psychiatric Psychiatric: appropriate mood/affect, cooperative - Neurologic Neurologic: moves all extremities Results - Labs CBC & Chem 7: 04/01/19 08:07 04/01/19 08:07 Labs: Laboratory Last Values WBC 7.8 K/mm3 (4.5-11.0) 01/16/20 08:07 RBC 5.76 M/mm3 (3.65-5.03) H 04/01/19 08:07 Hgb 14.6 gm/dl (10.1-14.3) H 04/01/19 08:07 Hct 47.2 % (30.3-42.9) H 04/01/19 08:07 MCV 82 fl (79-97) 04/01/19 08:07 MCH 25 pg (28-32) L 04/01/19 08:07 MCHC 31 % (30-34) 04/01/19 08:07 RDW 19.3 % (13.2-15.2) H 04/01/19 08:07 Plt Count 241 K/mm3 (140-440) 04/01/19 08:07 Lymph % (Auto) 12.4 % (13.4-35.0) L 04/01/19 08:07 [place] % (Auto) 4.8 % (0.0-7.3) 04/01/19 08:07 Eos % (Auto) 0.0 % (0.0-4.3) 04/01/19 08:07 Baso % (Auto) 0.1 % (0.0-1.8) 04/01/19 08:07 Lymph # 1.0 K/mm3 (1.2-5.4) L 04/01/19 08:07 [place] # 0.4 K/mm3 (0.0-0.8) 04/01/19 08:07 Eos # 0.0 K/mm3 (0.0-0.4) 04/01/19 08:07 Baso # 0.0 K/mm3 (0.0-0.1) 04/01/19 08:07 Add Manual Diff Complete 03/27/19 15:54 Total Counted 100 03/27/19 15:54 Seg Neutrophils % 82.7 % (40.0-70.0) H 04/01/19 08:07 Seg Neuts % (Manual) 63.0 % (40.0-70.0) 03/27/19 15:54 Band Neutrophils % 0 % 03/27/19 15:54 Lymphocytes % (Manual) 24.0 % (13.4-35.0) 03/27/19 15:54 Reactive Lymphs % (Man) 0 % 03/27/19 15:54 Monocytes % (Manual) 10.0 % (0.0-7.3) H 03/27/19 15:54 Eosinophils % (Manual) 3.0 % (0.0-4.3) 03/27/19 15:54 Basophils % (Manual) 0 % (0.0-1.8) 03/27/19 15:54 Metamyelocytes % 0 % 03/27/19 15:54 Myelocytes % 0 % 03/27/19 15:54 Promyelocytes % 0 % 03/27/19 15:54 Blast Cells % 0 % 03/27/19 15:54 Nucleated RBC % Not Reportable 03/27/19 15:54 Seg Neutrophils # 6.4 K/mm3 (1.8-7.7) 04/01/19 08:07 Seg Neutrophils # Man 3.6 K/mm3 (1.8-7.7) 03/27/19 15:54 Band Neutrophils # 0.0 K/mm3 03/27/19 15:54 Lymphocytes # (Manual) 1.4 K/mm3 (1.2-5.4) 03/27/19 15:54 Abs React Lymphs (Man) 0.0 K/mm3 03/27/19 15:54 Monocytes # (Manual) 0.6 K/mm3 (0.0-0.8) 03/27/19 15:54 Eosinophils # (Manual) 0.2 K/mm3 (0.0-0.4) 03/27/19 15:54 Basophils # (Manual) 0.0 K/mm3 (0.0-0.1) 03/27/19 15:54 Metamyelocytes # 0.0 K/mm3 03/27/19 15:54 Myelocytes # 0.0 K/mm3 03/27/19 15:54 Promyelocytes # 0.0 K/mm3 03/27/19 15:54 Blast Cells # 0.0 K/mm3 03/27/19 15:54 WBC Morphology Not Reportable 03/27/19 15:54 Hypersegmented Neuts Not Reportable 03/27/19 15:54 Hyposegmented Neuts Not Reportable 03/27/19 15:54 Hypogranular Neuts Not Reportable 03/27/19 15:54 Smudge Cells Not Reportable 03/27/19 15:54 Toxic Granulation Not Reportable 03/27/19 15:54 Toxic Vacuolation Not Reportable 03/27/19 15:54 Dohle Bodies Not Reportable 03/27/19 15:54 Pelger-Huet Anomaly Not Reportable 03/27/19 15:54 Rodney Rods Not Reportable 03/27/19 15:54 Platelet Estimate Consistent w auto 03/27/19 15:54 Clumped Platelets Not Reportable 03/27/19 15:54 Plt Clumps, EDTA Not Reportable 03/27/19 15:54 Large Platelets 1+ 03/27/19 15:54 Giant Platelets Not Reportable 03/27/19 15:54 Platelet Satelliting Not Reportable 03/27/19 15:54 Plt Morphology Comment Not Reportable 03/27/19 15:54 RBC Morphology Not Reportable 03/27/19 15:54 Dimorphic RBCs Not Reportable 03/27/19 15:54 Polychromasia Not Reportable 03/27/19 15:54 Hypochromasia 1+ 03/27/19 15:54 Poikilocytosis Not Reportable 03/27/19 15:54 Anisocytosis Not Reportable 03/27/19 15:54 Microcytosis Not Reportable 03/27/19 15:54 Macrocytosis Not Reportable 03/27/19 15:54 Spherocytes Not Reportable 03/27/19 15:54 Pappenheimer Bodies Not Reportable 03/27/19 15:54 Sickle Cells Not Reportable 03/27/19 15:54 Target Cells 1+ 03/27/19 15:54 Tear Drop Cells Not Reportable 03/27/19 15:54 Ovalocytes Few 03/27/19 15:54 Helmet Cells Not Reportable 03/27/19 15:54 Funez-[place] Bodies Not Reportable 03/27/19 15:54 Boles Rings Not Reportable 03/27/19 15:54 Platte Cells Not Reportable 03/27/19 15:54 Bite Cells Not Reportable 03/27/19 15:54 Crenated Cell Not Reportable 03/27/19 15:54 Elliptocytes Not Reportable 03/27/19 15:54 Acanthocytes (Spur) Not Reportable 03/27/19 15:54 Rouleaux Not Reportable 03/27/19 15:54 Hemoglobin C Crystals Not Reportable 03/27/19 15:54 Schistocytes Not Reportable 03/27/19 15:54 Malaria parasites Not Reportable 03/27/19 15:54 Marc Bodies Not Reportable 03/27/19 15:54 Hem Pathologist Commnt No 03/27/19 15:54 PT 15.3 Sec. (12.2-14.9) H 03/28/19 03:18 INR 1.19 (0.87-1.13) H 03/28/19 03:18 APTT 39.8 Sec. (24.2-36.6) H 03/28/19 03:18 D-Dimer 1130.51 ng/mlDDU (0-234) H 03/27/19 15:54 ABG pH 7.411 pH Units (7.350-7.450) 03/30/19 15:25 ABG pCO2 41.6 mm Hg 03/30/19 15:25 ABG pO2 78.4 mm Hg (80.0-90.0) L 03/30/19 15:25 ABG HCO3 25.9 mmol/L (20.0-26.0) 03/30/19 15:25 ABG O2 Saturation 96.0 % (95.0-99.0) 03/30/19 15:25 ABG O2 Content 18.8 (0.0-44) 03/30/19 15:25 ABG Base Excess 1.1 mmol/L (-2.0-3.0) 03/30/19 15:25 ABG Hemoglobin 14.2 gm/dl (12.0-16.0) 03/30/19 15:25 ABG Carboxyhemoglobin 1.7 % (0.0-5.0) 03/30/19 15:25 ABG Methemoglobin 0.5 % (0.0-1.5) 03/30/19 15:25 Oxyhemoglobin 94.0 % (95.0-99.0) L 03/30/19 15:25 FiO2 10 % 03/30/19 15:25 Sodium 137 mmol/L (137-145) 04/01/19 08:07 Potassium 4.1 mmol/L (3.6-5.0) 04/01/19 08:07 Chloride 99.4 mmol/L (98-107) 04/01/19 08:07 Carbon Dioxide 21 mmol/L (22-30) L 04/01/19 08:07 Anion Gap 21 mmol/L 04/01/19 08:07 BUN 32 mg/dL (7-17) H 04/01/19 08:07 Creatinine 0.8 mg/dL (0.7-1.2) 04/01/19 08:07 Estimated GFR > 60 ml/min 04/01/19 08:07 BUN/Creatinine Ratio 40 % 04/01/19 08:07 Glucose 147 mg/dL (65-100) H 04/01/19 08:07 Calcium 10.1 mg/dL (8.4-10.2) 04/01/19 08:07 Magnesium 2.20 mg/dL (1.7-2.3) 04/01/19 08:07 Total Bilirubin 1.50 mg/dL (0.1-1.2) H 03/27/19 15:54 AST 40 units/L (5-40) 03/27/19 15:54 ALT 33 units/L (7-56) 03/27/19 15:54 Alkaline Phosphatase 69 units/L (35-129) 03/27/19 15:54 Troponin T < 0.010 ng/mL (0.00-0.029) 03/27/19 15:54 NT-Pro-B Natriuret Pep 1903 pg/mL (0-900) H 03/27/19 17:15 Total Protein 7.7 g/dL (6.3-8.2) 03/27/19 15:54 Albumin 3.6 g/dL (3.9-5) L 03/27/19 15:54 Albumin/Globulin Ratio 0.9 % 03/27/19 15:54 Active Medications - Current Medications Current Medications: Generic Name Dose Route Start Last Admin Trade Name Freq PRN Reason Stop Dose Admin Acetaminophen 650 mg 03/27/19 23:25 Tylenol PO Q4H PRN Pain MILD(1-3)/Fever >100.5/SHETTY Acetaminophen/Hydrocodone Bitart 1 each 03/28/19 17:55 [place] 5/325 PO Q8H PRN Pain, Moderate (4-6) Albuterol/Ipratropium 1 ampul 03/28/19 02:00 04/01/19 07:30 Duoneb *Not For Prn Use* IH 1 ampul Q6HRT DAHLIA Administration Allopurinol 300 mg 03/28/19 16:00 04/01/19 09:46 Zyloprim PO 300 mg QDAY DAHLIA Administration Enoxaparin Sodium 40 mg 03/30/19 22:00 03/31/19 21:55 Enoxaparin SUB-Q Not Given QDAY@2200 DAHLIA Famotidine 20 mg 03/31/19 14:00 04/01/19 09:46 Pepcid IV 20 mg QDAY DAHLIA Administration Furosemide 40 mg 03/28/19 06:00 04/01/19 06:47 Lasix IV 40 mg BID@0600,1800 [facility] Administration Magnesium Hydroxide 30 ml 03/27/19 23:25 Milk Of Magnesia PO Q4H PRN Constipation Methylprednisolone Sodium Succinate 40 mg 03/28/19 06:00 04/01/19 06:47 Solu-Medrol IV 40 mg Q8HR DAHLIA Administration Morphine Sulfate 2 mg 03/27/19 23:25 Morphine IV Q4H PRN Pain, Moderate (4-6) Nitroglycerin 0.4 mg 03/27/19 23:25 Nitrostat SL .Q5MIN PRN Chest Pain Ondansetron HCl 4 mg 03/27/19 23:25 Zofran IV Q8H PRN Nausea And Vomiting Potassium Chloride 20 meq 03/28/19 16:00 04/01/19 09:39 K-Dur PO 20 meq QDAY DAHLIA Administration Sildenafil Citrate 20 mg 03/30/19 14:00 04/01/19 08:06 Revatio PO 20 mg TID DAHLIA Administration Sodium Chloride 10 ml 03/28/19 10:00 03/31/19 21:55 Sodium Chloride Flush Syringe 10 Ml IV 10 ml BID DAHLIA Administration Sodium Chloride 10 ml 03/27/19 23:25 Sodium Chloride Flush Syringe 10 Ml IV PRN PRN LINE FLUSH
--- NOTE | 2019-04-01 11:22 | Progress Note ---
Assessment and Plan Acute on chronic hypoxemic respiratory failure severe pulmonary hypertension. H/O chronic obstructive lung disease. H/O congestive heart failure. Morbid obesity. Hypertension. Gout. Obstructive sleep apnea. H/O tobacco abuse (Discussed with [facility] yesterday and patient was accepted at [facility] but still no transfer initiated) - Urgrade to ICU as she is barely maintaining her saturations on 100% FiO2 - add Brovana & Pulmicort re: COPD - continue supplemental oxygen via NRB for target O2 sats > 88% - BIPAP qhs as tolerated (Did not tolerate well overnight and i will reduce pressures to 18/12 - continue revatio as tolerated - continue diuresis per cardiology recommendations - continue bronchodilators (JENNIFER & LABA) with pulmonary hygiene per RT - continue systemic steroids with slow taper - follow clinically off AB's - continue accuchecks with SSI for target BG < 180 mg/dl - bed rest acutely (desaturates with minimal exertion) - mobility protocols for pressure ulcer prophylaxis - GI & VTE prophylaxis - tobacco abstinence strongly counseled at bedside - Flu & Pneumovax addressed per protocol - continue other care per attending / other business analyst consultant's ..... re-evaluate in am & prn The high probability of a clinically significant, sudden or life-threatening deterioration of the [cardiac & respiratory system] (s) required my full and direct attention, intervention and personal management. The aggregate critical care time was [40] minutes without overlap. Time includes spent on; [x] Data Review and interpretation [x] Patient assessment and monitoring of vital signs [x] Documentation [x] Medication orders and management Subjective Date of service: 04/01/19 Principal diagnosis: Ac. on ch hypoxemic resp failure; Pulm HTN; COPD; CHF; CHRISTIAN Interval history: Patient is seen today for: Ac. on ch hypoxemic resp failure; severe Pulm HTN; COPD; CHF; Morbid obesity; CHRISTIAN; HTN Seen and examined at bedside; 24hour events reviewed; nursing and respiratory care staff consulted; no adverse overnight events reported to me; Upgraded to ICU; sitting up in bed; remains on 100% NRB and barely maintaining O2 sat's in high 80%; did not tolerate BIPAP well overnight; No N/V/F/C Objective Vital Signs - 12hr 01/16/20 01/16/20 01/16/20 00:00 01:00 02:00 Temperature 99.0 F Pulse Rate 101 H 95 H 94 H Pulse Rate [ Bilateral Bases ] Pulse Rate [ Bilateral] Pulse Rate [ 109 H From Monitor] Respiratory 22 30 H 26 H Rate Respiratory Rate [Bilateral Bases] Respiratory Rate [Bilateral ] Blood Pressure 104/57 112/73 113/73 O2 Sat by Pulse 88 86 90 Oximetry 04/01/19 04/01/19 04/01/19 03:00 03:07 03:14 Temperature Pulse Rate 95 H 91 H Pulse Rate [ 96 H Bilateral Bases ] Pulse Rate [ Bilateral] Pulse Rate [ From Monitor] Respiratory 22 24 Rate Respiratory 20 Rate [Bilateral Bases] Respiratory Rate [Bilateral ] Blood Pressure 121/80 121/80 O2 Sat by Pulse 92 93 Oximetry 04/01/19 04/01/19 04/01/19 03:38 04:00 05:00 Temperature 99.1 F Pulse Rate 89 91 H Pulse Rate [ Bilateral Bases ] Pulse Rate [ Bilateral] Pulse Rate [ 109 H From Monitor] Respiratory 20 17 Rate Respiratory Rate [Bilateral Bases] Respiratory Rate [Bilateral ] Blood Pressure 127/79 139/86 O2 Sat by Pulse 95 95 Oximetry 04/01/19 04/01/19 04/01/19 06:00 07:00 07:30 Temperature Pulse Rate 88 91 H Pulse Rate [ 94 H Bilateral Bases ] Pulse Rate [ 98 H Bilateral] Pulse Rate [ From Monitor] Respiratory 17 25 H Rate Respiratory 18 Rate [Bilateral Bases] Respiratory 18 Rate [Bilateral ] Blood Pressure 138/81 131/86 O2 Sat by Pulse 94 92 Oximetry 04/01/19 04/01/19 04/01/19 07:31 07:59 08:00 Temperature 99.0 F Pulse Rate 103 H Pulse Rate [ Bilateral Bases ] Pulse Rate [ Bilateral] Pulse Rate [ 100 H From Monitor] Respiratory 26 H Rate Respiratory Rate [Bilateral Bases] Respiratory Rate [Bilateral ] Blood Pressure 112/69 O2 Sat by Pulse 92 81 L Oximetry 04/01/19 04/01/19 04/01/19 09:00 10:00 11:00 Temperature Pulse Rate 100 H 97 H 99 H Pulse Rate [ Bilateral Bases ] Pulse Rate [ Bilateral] Pulse Rate [ From Monitor] Respiratory 22 27 H 23 Rate Respiratory Rate [Bilateral Bases] Respiratory Rate [Bilateral ] Blood Pressure 125/76 119/79 116/68 O2 Sat by Pulse 85 88 82 L Oximetry Constitutional: alert, appears uncomfortable, other (middle aged obese AAF, normocephalic with mildly increased respiratory effort at rest) Eyes: non-icteric ENT: oropharynx moist, other (Mallampati 4) Neck: supple, no lymphadenopathy Effort: mildly labored Ascultation: Bilateral: diminished breath sounds Percussion: Bilateral: not dull Cardiovascular: regular rate and rhythm Gastrointestinal: normoactive bowel sounds, soft, non-tender, non-distended (protuberant) Integumentary: normal Extremities: no cyanosis, pulses normal, no ischemia or petechiae, edema (trace) Neurologic: normal mental status, non-focal exam, pupils equal and round, motor strength normal and Psychiatric: anxious CBC and BMP: 04/01/19 08:07 04/01/19 08:07 ABG, PT/INR, D-dimer: ABG ABG pH 7.411 pH Units (7.350-7.450) 03/30/19 15:25 ABG pCO2 41.6 mm Hg 03/30/19 15:25 ABG pO2 78.4 mm Hg (80.0-90.0) L 03/30/19 15:25 ABG O2 Saturation 96.0 % (95.0-99.0) 03/30/19 15:25 PT/INR, D-dimer PT 15.3 Sec. (12.2-14.9) H 03/28/19 03:18 INR 1.19 (0.87-1.13) H 03/28/19 03:18 D-Dimer 1130.51 ng/mlDDU (0-234) H 03/27/19 15:54 Abnormal lab findings: Abnormal Labs 03/27/19 03/27/19 03/27/19 15:54 15:54 15:54 RBC Hgb Hct MCH 26 L RDW 19.6 H Lymph % (Auto) [place] % (Auto) Lymph # Seg Neutrophils % Monocytes % (Manual) 10.0 H PT INR APTT D-Dimer 1130.51 H ABG pO2 Oxyhemoglobin Carbon Dioxide BUN Glucose Calcium Total Bilirubin 1.50 H NT-Pro-B Natriuret Pep Albumin 3.6 L 03/27/19 03/28/19 03/28/19 17:15 03:18 03:18 RBC 5.16 H Hgb Hct MCH 26 L RDW 19.3 H Lymph % (Auto) 39.1 H [place] % (Auto) 10.1 H Lymph # Seg Neutrophils % Monocytes % (Manual) PT 15.3 H INR 1.19 H APTT 39.8 H D-Dimer ABG pO2 Oxyhemoglobin Carbon Dioxide BUN Glucose Calcium Total Bilirubin NT-Pro-B Natriuret Pep 1903 H Albumin 03/28/19 03/30/19 03/30/19 03:18 09:23 09:23 RBC 5.50 H Hgb Hct 44.8 H MCH 25 L RDW 19.7 H Lymph % (Auto) [place] % (Auto) Lymph # Seg Neutrophils % Monocytes % (Manual) PT INR APTT D-Dimer ABG pO2 Oxyhemoglobin Carbon Dioxide BUN 23 H Glucose 128 H 154 H Calcium 10.5 H Total Bilirubin NT-Pro-B Natriuret Pep Albumin 03/30/19 04/01/19 04/01/19 15:25 08:07 08:07 RBC 5.76 H Hgb 14.6 H Hct 47.2 H MCH 25 L RDW 19.3 H Lymph % (Auto) 12.4 L [place] % (Auto) Lymph # 1.0 L Seg Neutrophils % 82.7 H Monocytes % (Manual) PT INR APTT D-Dimer ABG pO2 78.4 L Oxyhemoglobin 94.0 L Carbon Dioxide 21 L BUN 32 H Glucose 147 H Calcium Total Bilirubin NT-Pro-B Natriuret Pep Albumin Chest x-ray: image reviewed (low lung volumes) Allied health notes reviewed: RT
--- NOTE | 2019-04-01 12:56 | Progress Note ---
Assessment and Plan Cont present cardiac management. Pt to be tx to [facility]'s per critical care team. The patient has been seen in conjunction with Dr. Nicole Shultz who agrees with the assessment and plan of care. - Patient Problems (1) Acute heart failure with preserved ejection fraction Current Visit: Yes Status: Acute (2) Cor pulmonale Current Visit: Yes Status: Acute (3) Moderate to severe pulmonary hypertension Current Visit: Yes Status: Chronic (4) Acute and chronic respiratory failure with hypoxia Current Visit: Yes Status: Acute (5) Hypertension Current Visit: Yes Status: Chronic Qualifiers: Hypertension type: essential hypertension Qualified Code(s): I10 - Essential (primary) hypertension (6) Obesity hypoventilation syndrome Current Visit: Yes Status: Chronic (7) Obstructive sleep apnea Current Visit: Yes Status: Chronic (8) Morbid obesity Current Visit: Yes Status: Chronic (9) Former smoker Current Visit: Yes Status: Chronic Subjective Date of service: 04/01/19 Principal diagnosis: Ac. on ch hypoxemic resp failure; Pulm HTN; COPD; CHF; CHRISTIAN Interval history: pt resting in bed, tearful, anxious, remains on HiFlo NC. daughter at bedside. awaiting tx to [facility] per critical care team. Objective Last Vital Signs Temp 99.0 F 04/01/19 07:59 Pulse 97 H 04/01/19 12:00 Resp 23 04/01/19 12:00 BP 118/72 04/01/19 12:00 Pulse Ox 83 L 04/01/19 12:00 - Physical Examination General: No Apparent Distress HEENT: Positive: PERRL, Normocephaly, Mucus Membranes Moist Neck: Positive: neck supple, trachea midline Cardiac: Positive: Reg Rate and Rhythm, S1/S2 Lungs: Positive: Decreased Breath Sounds, Oxygen Neuro: Positive: Grossly Intact Abdomen: Negative: Tender Skin: Negative: Rash Musculoskeletal: No Pain Extremities: Absent: edema - Labs and Meds CBC 04/01/19 Range/Units 08:07 WBC 7.8 (4.5-11.0) K/mm3 RBC 5.76 H (3.65-5.03) M/mm3 Hgb 14.6 H (10.1-14.3) gm/dl Hct 47.2 H (30.3-42.9) % Plt Count 241 (140-440) K/mm3 Lymph # 1.0 L (1.2-5.4) K/mm3 [place] # 0.4 (0.0-0.8) K/mm3 Eos # 0.0 (0.0-0.4) K/mm3 Baso # 0.0 (0.0-0.1) K/mm3 Comprehensive Metabolic Panel 04/01/19 Range/Units 08:07 Sodium 137 (137-145) mmol/L Potassium 4.1 (3.6-5.0) mmol/L Chloride 99.4 (98-107) mmol/L Carbon Dioxide 21 L (22-30) mmol/L BUN 32 H (7-17) mg/dL Creatinine 0.8 (0.7-1.2) mg/dL Glucose 147 H (65-100) mg/dL Calcium 10.1 (8.4-10.2) mg/dL - Imaging and Cardiology EKG: report reviewed, image reviewed Echo: report reviewed (03/2019: EF 55-60%, LA mildly dilated, RA severely dilated, RV mod dilated, mild MR, mod TR, severe pulmonary HTN with RVSP 101mmHg. 02/2018 showed EF 55-60%, RA mod to severely dilated, mild TR, impaired relaxation, RV mod to severely dilated, severe pulm HTN with RVSP 90mmHg.) - EKG Sinus rhythms and dysrhythmias: sinus rhythm Repolarization changes or abnormalities: nonspecific abnormality, ST segment, and/or T wave - Allied health notes Allied health notes reviewed: RT
--- NOTE | 2019-04-01 13:30 | Discharge Summary ---
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 Patient was in acute heart failure with preserved ejection fraction , acute on chronic respiratory failure due to obstructive lung disease and severe pulmonary hypertension Admitted to ICU evaluated by pulmonary critical medications optimized Even after 100% oxygen nonrebreather patient was saturating between 88-90/91 Discussed with [facility] pulmonary critical, who accepted the patient today Patient is awaiting transfer. Final diagnosis; --Acute on chronic respiratory failure with Cor pulmonale History of chronic obstructive pulmonary disease, on home oxygen ICU patient was on 100% Fio2, saturating 89-91%, BiPAP as needed Pulmonary critical following, Discussed with [facility] physician for transfer to [facility] yesterday The physician recommended possible transfer on 04/01/19 today Today again I discussed the case with [facility] physician Dr. Horne Who accepted the patient for transfer today --Moderate to severe pulmonary hypertension Sildenafil started by pulmonary Planning transfer to [facility] --Acute diastolic heart failure with preserved ejection fraction cont lasix iv, cardiology following monitor ins/os, daily wt, supplemental O2 --Obstructive sleep apnea; CPAP BiPAP at night And as needed daytime --Hypertension; moderate control Continue current antihypertensives and when necessary medications --Obesity hypoventilation syndrome BiPAP at bedtime --Morbid obesity; BMI 51.6 Advice weight reduction when medically stable, may benefit from referral for bariatric surgery Weight reduction program as outpatient --Dvt Px, lovenox. Continue current management Pending transfer to [facility] Patient is critically ill with guarded prognosis Critical care time 45 minutes Disposition: [id number] ANOTHER TYPE HLTHCARE Time spent for discharge: 35 min Core Measure Documentation - Palliative Care Palliative Care/ Comfort Measures: Not Applicable - Core Measures Any of the following diagnoses?: none Exam - Constitutional Vitals: Temp Pulse Resp BP Pulse Ox 98.0 F 99 H 20 84/51 92 04/01/19 12:00 04/01/19 13:01 04/01/19 13:01 04/01/19 13:01 04/01/19 13:01 General appearance: Present: mild distress, well-nourished, obese (morbidly obese) - EENT Eyes: Present: PERRL, EOM intact - Neck Neck: Present: supple, normal ROM - Respiratory Respiratory: bilateral: diminished, rhonchi, negative: rales, wheezing - Cardiovascular Rhythm: regular Heart Sounds: Present: S1 & S2 - Extremities Extremities: no ischemia, No edema - Abdominal General gastrointestinal: Present: soft, non-tender, non-distended, normal bowel sounds - Integumentary Integumentary: Present: clear, warm - Musculoskeletal Musculoskeletal: strength equal bilaterally - Psychiatric Psychiatric: appropriate mood/affect, cooperative - Neurologic Neurologic: CNII-XII intact, moves all extremities Plan Additional Instructions: Transfer to [facility] for further evaluation and management Follow up with: BRO LANE MD [Primary Care Provider] - 3-5 Days MICAELA SEGURA MD [Staff Physician] - 7 Days
[2019-04-01 17:27] VITALS: BP 104/62
[2019-04-03 12:38] LABS: ANA Screen, IFA Negative (Negative)
== END 2019-04-01 16:00 | disposition home or self-care (01) | DRG 291 ==
LOC: ED 15:09 → IMCU 22:05 → CC1 03-29 07:24
PROVIDERS: ADMIT Internal Medicine Geriatric Medicine; ATTEND Internal Medicine
PROC: 4A033R1 Measurement of Arterial Saturation, Peripheral, Percutaneous Approach (ICD-10-PCS; principal; 2019-03-30)
PROC: 5A09357 Assistance with Respiratory Ventilation, Less than 24 Consecutive Hours, Continuous Positive Airway Pressure (ICD-10-PCS; 2019-04-01)
DX: I11.0 Hypertensive heart disease with heart failure (principal); J96.21 Acute and chronic respiratory failure with hypoxia; Z68.43 Body mass index [BMI] 50.0-59.9, adult; E66.2 Morbid (severe) obesity with alveolar hypoventilation; J44.1 Chronic obstructive pulmonary disease with (acute) exacerbation; I50.33 Acute on chronic diastolic (congestive) heart failure; M19.90 Unspecified osteoarthritis, unspecified site; M10.9 Gout, unspecified; I27.20 Pulmonary hypertension, unspecified; Z79.82 Long term (current) use of aspirin
CPT/HCPCS: 36415; 36600; 71045; 71275; 80048; 80053; 82803; 83735; 83880; 84484; 85007; 85025; 85027; 85379; 85610; 85730; 86038; 90686; 90732; 93005; 93010; 93306; 93970; 94640; 94644; 94660; 94760; 96365; G0378; J1650; J1940; J2920; J2930; Q9967